=== PATIENT | male | born 1940 | race Caucasian/White ===

== ENCOUNTER 2017-08-11 15:20 | Inpatient (IN) | payer MEDICARE, OTHER ==
[2017-08-11] MEDS ORDERED: ASPIRIN 81 MG TABLET, CHEWABLE PO ONE (15:26)
--- NOTE | 2017-08-11 15:55 | RADIOLOGY REPORT (SQ) ---
EXAM DESCRIPTION: CHEST SINGLE VIEW COMPLETED DATE/TIME: 08/11/2017 3:46 pm REASON FOR STUDY: cp COMPARISON: None. EXAM PARAMETERS: NUMBER OF VIEWS: One view. TECHNIQUE: Single frontal radiographic view of the chest acquired. RADIATION DOSE: NA LIMITATIONS: None. FINDINGS: LUNGS AND PLEURA: Multifocal airspace disease involving the left upper and left lower lobe . MEDIASTINUM AND HILAR STRUCTURES: No masses. Contour normal. HEART AND VASCULAR STRUCTURES: Heart is enlarge. Normal vasculature. BONES: No acute findings. HARDWARE: Dual lead cardiac pacer. OTHER: No other significant finding. IMPRESSION: MULTIFOCAL LEFT-SIDED AIRSPACE DISEASE PRESUMABLY REPRESENTS PNEUMONIA IN THE APPROPRIAT E CLINICAL SETTING. RECOMMEND FOLLOWUP RADIOGRAPHS IN 4 TO 6 WEEKS TO ENSURE RESOLUTION. TECHNICAL DOCUMENTATION: JOB ID: [id number] [employer]- All Rights Reserved
[2017-08-11 15:59] LABS: ABSOLUTE EOSINOPHILS # (AUTO) 0.1 10^3/uL (0.0-0.6); ABSOLUTE MONOCYTES (AUTO) 0.4 10^3/uL (0.1-1.4); BASOPHILS % (AUTO) 0.7 % (0-2); EOSINOPHILS % (AUTO) 1.9 % (0-6); HEMATOCRIT 27.6 % (37.9-51.0); HEMOGLOBIN 9.1 g/dL (13.5-17.0); LYMPHOCYTES % (AUTO) 14.8 % (13-45); MEAN CORPUSCULAR HEMOGLOBIN 27.7 pg (27.0-33.4); MEAN CORPUSCULAR HGB CONC 32.9 g/dL (32.0-36.0); MEAN CORPUSCULAR VOLUME 84 fl (80-97); MONOCYTES % (AUTO) 5.7 % (3-13); PLATELET COUNT 111 10^3/uL (150-450); RED BLOOD COUNT 3.28 10^6/uL (4.35-5.55); RED CELL DISTRIBUTION WIDTH 16.1 % (11.5-14.0); SEGMENTED NEUTROPHILS % (AUTO) 76.9 % (42-78); TOTAL CELLS COUNTED % (AUTO) 100 %; WHITE BLOOD COUNT 6.5 10^3/uL (4.0-10.5)
[2017-08-11] MEDS ORDERED: NITROGLYCERIN 2% OINTMENT 1 GM PACKET TP ONE (15:59)
[2017-08-11 16:16] LABS: ALANINE AMINOTRANSFERASE 20 U/L (21-72); ALBUMIN 3.7 g/dL (3.5-5.0); ALKALINE PHOSPHATASE 100 U/L (38-126); ANION GAP 11 (5-19); ASPARTATE AMINO TRANSFERASE 14 U/L (17-59); BILIRUBIN,DIRECT 0.2 mg/dL (0.0-0.4); BILIRUBIN,TOTAL 0.6 mg/dL (0.2-1.3); BLOOD UREA NITROGEN 45 mg/dL (7-20); CALCIUM 9.9 mg/dL (8.4-10.2); CARBON DIOXIDE 30 mmol/L (22-30); CHLORIDE 102 mmol/L (98-107); CREATINE KINASE 44 U/L (55-170); GLUCOSE 105 mg/dL (75-110); POTASSIUM 4.7 mmol/L (3.6-5.0); TOTAL PROTEIN 7.3 g/dL (6.3-8.2)
[2017-08-11 16:26] LABS: CREATINE KINASE MB 1.27 ng/mL (<4.55)
[2017-08-11 16:28] LABS: TROPONIN I < 0.012 ng/mL
[2017-08-11] MEDS ORDERED: LEVOFLOXACIN 500 MG/D5W RTU 500 MG/100 ML RTUPB IV ONE (16:59)
[2017-08-11] MEDS ORDERED: CEFEPIME 1 GM/D5W RTU 1 GM/50 ML RTUPB IV ONE (16:59)
--- NOTE | 2017-08-11 17:02 | ER Document Report ---
ED General - General Stated Complaint: CHEST PAIN Time Seen by Provider: 08/11/17 15:50 - HPI Patient complains to provider of: Chest pain shortness of breath Notes: Patient states recently traveled to the area from [place]. Patient states 2 weeks ago was treated for pneumonia took an antibiotic twice a day completed patient states feeling better traveled in an RV to the area. Patient states extensive cardiac history of 5 stents placed cards indicate LAD RCA lesions. Patient also has a pacemaker. Patient denies a history of blood clots. Denies any fevers chills or night sweats states shortness of breath with exertion. States this is worse than his baseline. Patient does have a history of COPD and is on chronic oxygen 4 L at home. Patient points to the right side of his chest upon my evaluations to the area of his pain. Patient denies any trauma. Patient states pain was relieved with nitro glycerin. Patient otherwise resting comfortably upon my evaluation. - Related Data Allergies/Adverse Reactions: No Known Allergies Allergy (Verified 08/11/17 18:20) Past Medical History - Social History Smoking Status: Unknown if Ever Smoked Family History: Reviewed & Not Pertinent Review of Systems - Review of Systems Constitutional: No symptoms reported EENT: No symptoms reported Cardiovascular: Chest pain Respiratory: Short of breath, Wheezing Gastrointestinal: No symptoms reported Genitourinary: No symptoms reported Male Genitourinary: No symptoms reported Musculoskeletal: No symptoms reported Skin: No symptoms reported Hematologic/Lymphatic: No symptoms reported Neurological/Psychological: No symptoms reported -: Yes All other systems reviewed and negative Physical Exam - Vital signs Vitals: Pulse Ox 85 L 08/11/17 15:21 Interpretation: Normal - General General appearance: Appears well, Alert - HEENT Head: Normocephalic, Atraumatic Eyes: Normal Pupils: PERRL - Respiratory Respiratory status: No respiratory distress Chest status: Nontender Breath sounds: Rhonchi, Wheezing Chest palpation: Normal - Cardiovascular Rhythm: Regular Heart sounds: Normal auscultation Murmur: No - Abdominal Inspection: Normal Distension: No distension Bowel sounds: Normal Tenderness: Nontender Organomegaly: No organomegaly - Back Back: Normal, Nontender - Extremities General upper extremity: Normal inspection, Nontender, Normal color, Normal ROM , Normal temperature General lower extremity: Normal inspection, Nontender, Normal color, Normal ROM , Normal temperature, Normal weight bearing. No: Kaden's sign - Neurological Neuro grossly intact: Yes Cognition: Normal Orientation: AAOx4 Ramez Coma Scale Eye Opening: Spontaneous Ramez Coma Scale Verbal: Oriented [place] Coma Scale Motor: Obeys Commands Ramez Coma Scale Total: 15 Speech: Normal Motor strength normal: LUE, RUE, LLE, RLE Sensory: Normal - Psychological Associated symptoms: Normal affect, Normal mood - Skin Skin Temperature: Warm Skin Moisture: Dry Skin Color: Normal Course - Re-evaluation Re-evalutation: 08/11/17 19:44 Chest x-ray shows a left-sided pneumonia. Patient states he was treated for right-sided pneumonia. Initially was going to perform a CTA as the patient became very hypoxic upon standing going down as low as 75%. However with the diagnosis pneumonia I think we have the etiology for the patient's pain and shortness of breath. Started on cefepime and Levaquin. Patient will be admitted to the hospitalist service. - Vital Signs Vital signs: Temp Pulse Resp BP Pulse Ox 85 L 08/11/17 15:21 - Laboratory Result Diagrams: 08/11/17 15:30 08/11/17 15:30 Laboratory results interpreted by me: 08/11/17 08/11/17 15:30 15:30 RBC 3.28 L Hgb 9.1 L Hct 27.6 L RDW 16.1 H Plt Count 111 L BUN 45 H Creatinine 2.29 H Est GFR ( Amer) 34 L Est GFR (Non-Af Amer) 28 L AST 14 L ALT 20 L Creatine Kinase 44 L Discharge - Discharge Clinical Impression: Left-sided pneumonia, Right-sided chest pain, Hypoxemia, Oxygen dependent COPD (chronic obstructive pulmonary disease) Qualifiers: COPD type: unspecified COPD Qualified Code(s): J44.9 - Chronic obstructive pulmonary disease, unspecified Condition: Good Disposition: ADMITTED OBSERVATION Admitting Provider: Hospitalist - [facility] Admitted: Telemetry
[2017-08-11] MEDS ORDERED: NORMAL SALINE 1000 ML 1,000 ML IV PRN (17:32)
[2017-08-11] MEDS ORDERED: MORPHINE SULFATE 10 MG/ML INJ IV PRN (17:41)
[2017-08-11] MEDS ORDERED: BUDESONIDE NEB 0.5 MG/2 ML AMPUL NEB ONE (18:30)
[2017-08-11] MEDS ORDERED: ONDANSETRON HCL INJ/PF 4 MG/2 ML SDV IV PRN (18:32)
--- NOTE | 2017-08-11 18:33 | PDOC H&P ---
History of Present Illness Admission Date/PCP: 08/11/17 Dr. Sandhu Patient complains of: Chest pain History of Present Illness: GILBERTO LEUNG is a 76 year old male with a history of COPD, chronic hypoxic respiratory failure, coronary artery disease status post 5 stents, hypertension and pacemaker placement presenting with a complaint of chest pain which woke him up this morning. Patient states that it is in the middle of his chest and wont go away. Patient states moving makes it worse and staying still makes it better. Patient states that he has some lightheadedness while getting up. Patient also reports being short of breath however patient is on 4 liters of oxygen. Patient states that this chest pain is different from the chest pain he had during his heart attack. Patient would like something for the the pain. Patient states that he had pneumonia 2 weeks ago and was treated for it. He did have his flu and pneumovax. Patient denies any cough, fever but does state he has some chills. In the ED patient was started on cefepime and levaquin for a left-sided pneumonia. He was also noted to be hypoxic into the 70s with minimal activity. Patient was given aspirin and Nitropaste for his chest pain however his troponin is negative. Hospitalist was called to admit patient for left-sided pneumonia and acute on chronic hypoxic respiratory failure. Past Medical History Cardiac Medical History: Reports: Coronary Artery Disease, Myocardial Infarction , Hypertension Pulmonary Medical History: Reports: Chronic Obstructive Pulmonary Disease (COPD) , Respiratory Failure Psychiatric Medical History: Reports: Alcohol Dependency Past Surgical History Past Surgical History: Reports: Coronary Stent, Pacemaker Social History Lives with: Spouse/Significant other Smoking Status: Former Smoker Last Alcohol Use: 08/10/17 - Wine daily Hx Recreational Drug Use: No Family History Family History: CAD - Heart attack in mother, Malignancy - Liver cancer in father Parental Family History Reviewed: No Children Family History Reviewed: No Sibling(s) Family History Reviewed.: No Medication/Allergy Home Medications: Albuterol Sulfate [Proair HFA] 08/12/17 Amlodipine Besylate [Norvasc 10 mg Tablet] DAILY 08/12/17 Atorvastatin Calcium [Lipitor 80 mg Tablet] DAILY 08/12/17 Clopidogrel Bisulfate [Clopidogrel] DAILY 08/12/17 Furosemide [Furosemide] 08/12/17 Metoprolol Tartrate [Lopressor 50 mg Tablet] 25 mg BID 08/12/17 Nitroglycerin [Nitroglycerin] PRN 08/12/17 Ranitidine HCl [Heartburn Relief] DAILY 08/12/17 Allergies/Adverse Reactions: No Known Allergies Allergy (Verified 08/11/17 18:20) Review of Systems Constitutional: PRESENT: chills. ABSENT: fever(s), headache(s), weight gain, weight loss Eyes: ABSENT: visual disturbances Ears: ABSENT: hearing changes Cardiovascular: PRESENT: chest pain, dyspnea on exertion. ABSENT: edema, orthropnea, palpitations Respiratory: ABSENT: cough, hemoptysis Gastrointestinal: ABSENT: abdominal pain, constipation, diarrhea, hematemesis, hematochezia, nausea, vomiting Genitourinary: ABSENT: dysuria, hematuria Musculoskeletal: ABSENT: joint swelling Integumentary: ABSENT: rash, wounds Neurological: PRESENT: dizziness. ABSENT: abnormal gait, abnormal speech, confusion, focal weakness, syncope Psychiatric: ABSENT: anxiety, depression, homidical ideation, suicidal ideation Endocrine: ABSENT: cold intolerance, heat intolerance, polydipsia, polyuria Hematologic/Lymphatic: ABSENT: easy bleeding, easy bruising Physical Exam Vital Signs: Selected Entries 08/11/17 21:04 Temperature 98.4 F Pulse Rate [ 98 Bilateral Radial] Respiratory 22 H Rate Blood Pressure 109/56 L [Right Upper Arm] Blood Pressure 73 Mean [Right Upper Arm] O2 Sat by Pulse 92 Oximetry Oxygen Flow 4 Rate Height 5 ft 11 in Weight 81.647 kg General appearance: PRESENT: mild distress, well-developed Head exam: PRESENT: normocephalic Eye exam: PRESENT: EOMI. ABSENT: scleral icterus Ear exam: PRESENT: normal external ear exam Mouth exam: PRESENT: moist Neck exam: ABSENT: carotid bruit, JVD, lymphadenopathy, thyromegaly Respiratory exam: PRESENT: decreased breath sounds. ABSENT: rales, rhonchi, wheezes Cardiovascular exam: PRESENT: RRR. ABSENT: diastolic murmur, rubs, systolic murmur Pulses: PRESENT: normal dorsalis pedis pul Vascular exam: PRESENT: normal capillary refill GI/Abdominal exam: PRESENT: normal bowel sounds, soft. ABSENT: distended, guarding, mass, organolmegaly, rebound, tenderness Rectal exam: PRESENT: deferred Extremities exam: PRESENT: full ROM. ABSENT: calf tenderness, clubbing, pedal edema Neurological exam: PRESENT: alert, awake, oriented to person, oriented to place , oriented to time, oriented to situation, CN II-XII grossly intact. ABSENT: motor sensory deficit Psychiatric exam: PRESENT: appropriate affect, normal mood. ABSENT: homicidal ideation, suicidal ideation Skin exam: PRESENT: dry, intact, warm. ABSENT: cyanosis, rash Results Laboratory Results: 08/11/17 15:30 08/11/17 15:30 08/11/17 08/11/17 08/11/17 15:30 15:30 15:30 WBC 6.5 RBC 3.28 L Hgb 9.1 L Hct 27.6 L MCV 84 MCH 27.7 MCHC 32.9 RDW 16.1 H Plt Count 111 L Seg Neutrophils % 76.9 Lymphocytes % 14.8 Monocytes % 5.7 Eosinophils % 1.9 Basophils % 0.7 Absolute Neutrophils 5.0 Absolute Lymphocytes 1.0 Absolute Monocytes 0.4 Absolute Eosinophils 0.1 Absolute Basophils 0.0 Sodium 143.0 Potassium 4.7 Chloride 102 Carbon Dioxide 30 Anion Gap 11 BUN 45 H Creatinine 2.29 H Est GFR ( Amer) 34 L Est GFR (Non-Af Amer) 28 L Glucose 105 Calcium 9.9 Total Bilirubin 0.6 AST 14 L ALT 20 L Alkaline Phosphatase 100 Total Protein 7.3 Albumin 3.7 Lipase 69.8 08/11/17 08/11/17 15:30 15:30 Creatine Kinase 44 L CK-MB (CK-2) 1.27 Troponin I < 0.012 Impressions: Chest X-Ray 08/11/17 15:26 IMPRESSION: MULTIFOCAL LEFT-SIDED AIRSPACE DISEASE PRESUMABLY REPRESENTS PNEUMONIA IN THE APPROPRIATE CLINICAL SETTING. RECOMMEND FOLLOWUP RADIOGRAPHS IN 4 TO 6 WEEKS TO ENSURE RESOLUTION. Assessment & Plan - Diagnosis (1) Chest pain Qualifiers: Chest pain type: unspecified Qualified Code(s): R07.9 - Chest pain, unspecified Is this a current diagnosis for this admission?: Yes Plan: Patient with midsternal chest pain without radiation nonreproducible. Seems atypical in nature. However due to his significant cardiac history 3 MIs with 5 stents. It is appropriate to rule out acute coronary syndrome. Initial troponin is negative. Will check serial troponins, order EKG cardiac echo. Appears that patient has chronic chest pain as he has Nitropaste status on his home medications. Will continue Nitropaste, aspirin, statin and beta-boyd. Morphine PRN for chest pain. Will check lipid panel in the morning along with hemoglobin A1c. (2) Pneumonia Qualifiers: Laterality: left Is this a current diagnosis for this admission?: Yes Plan: Sided pneumonia on chest x-ray. Patient with cefepime and Levaquin. Concerned about using left quite again as patient has had multiple prescriptions for Levaquin. Blood culture ordered. Order incentive spirometry and encourage up to chair. (3) COPD (chronic obstructive pulmonary disease) Qualifiers: COPD type: unspecified COPD Qualified Code(s): J44.9 - Chronic obstructive pulmonary disease, unspecified Is this a current diagnosis for this admission?: Yes Plan: Patient may be having an exacerbation at this time as he is short of breath and extremely hypoxic with minimal activity. Will start patient on IV steroids, continue antibiotics along with duo nebs and inhaled steroids. (4) Acute and chronic respiratory failure with hypoxia Is this a current diagnosis for this admission?: Yes Plan: Acute on chronic hypoxic respiratory failure. Patient does wear 4 L of oxygen at home which began in January. Patient noted to be desatting on 4 L and was put on 6 L while in the ED. monitor patient and wean oxygen as tolerated. (5) Hypertension Qualifiers: Hypertension type: essential hypertension Qualified Code(s): I10 - Essential (primary) hypertension Is this a current diagnosis for this admission?: Yes Plan: Will continue patient on his home medications. (6) CKD (chronic kidney disease) stage 4, GFR 15-29 ml/min Is this a current diagnosis for this admission?: Yes Plan: Possibly chronic in nature as patient also has anemia. Will gently hydrate overnight and repeat BMP in the morning. (7) Anemia Qualifiers: Anemia type: due to chronic kidney disease Chronic kidney disease stage: stage 4 (severe) Qualified Code(s): N18.4 - Chronic kidney disease, stage 4 ( severe); D63.1 - Anemia in chronic kidney disease; D63.1 - Anemia in chronic kidney disease Is this a current diagnosis for this admission?: Yes Plan: Likely anemia of chronic kidney disease. Patient hemoglobin is 9.1. Will monitor and check anemia panel. (8) Thrombocytopenia Is this a current diagnosis for this admission?: Yes Plan: Not sure if this is chronic in nature as we do not have anything to compare to. Patient reports drinking daily. Not sure if this may be the cause. Will use SCDs for DVT prophylaxis and repeat CBC in a.m. (9) HLD (hyperlipidemia) Qualifiers: Hyperlipidemia type: unspecified Qualified Code(s): E78.5 - Hyperlipidemia , unspecified Is this a current diagnosis for this admission?: Yes Plan: Continue statin.
[2017-08-11] MEDS ORDERED: MORPHINE SULFATE 10 MG/ML INJ IV ONE (19:00)
[2017-08-11] MEDS: IPRATROPIUM/ALBUTEROL 0.5-2.5 MG/3 ML AMPUL NEB SCH (19:31)
[2017-08-11] MEDS: METHYLPREDNISOLONE INJ 125 MG/2 ML SDV IV SCH (20:00)
[2017-08-11] MEDS ORDERED: ATORVASTATIN CALCIUM 80 MG TABLET PO ONE (20:00)
[2017-08-11] MEDS ORDERED: SENNOSIDES/DOCUSATE 8.6-50 MG 1 EACH TABLET PO ONE (20:00)
[2017-08-11] MEDS: GUAIFENESIN 600 MG TABLET.SA PO SCH (21:37)
[2017-08-11] MEDS: CEFEPIME 2 GM/D5W RTU 2 GM/50 ML RTUPB IV SCH (21:37)
[2017-08-11] MEDS: METOPROLOL TARTRATE 50 MG TABLET PO SCH (21:40)
[2017-08-11] MEDS: OXYCODONE-ACETAMINOPHEN 5-325 MG TABLET PO PRN (21:41)
[2017-08-11] MEDS ORDERED: LINEZOLID 300 ML IV ONE (22:48)
[2017-08-12] MEDS: IPRATROPIUM/ALBUTEROL 0.5-2.5 MG/3 ML AMPUL NEB SCH ×7 (00:07→23:22)
[2017-08-12] MEDS: DIAZEPAM 2 MG TABLET PO SCH ×4 (00:10→21:47)
[2017-08-12] MEDS: LINEZOLID 300 ML IV SCH ×3 (00:10→21:47)
[2017-08-12 05:49] LABS: ABSOLUTE LYMPHOCYTES (AUTO) 0.6 10^3/uL (0.5-4.7); ABSOLUTE MONOCYTES (AUTO) 0.3 10^3/uL (0.1-1.4); ABSOLUTE NEUT (AUTO) 5.4 10^3/uL (1.7-8.2); ABSOLUTE RETICS # 0.042 10^6/uL (0.028-0.122); BASOPHILS % (AUTO) 0.1 % (0-2); EOSINOPHILS % (AUTO) 0.1 % (0-6); HEMATOCRIT 27.2 % (37.9-51.0); HEMOGLOBIN 8.7 g/dL (13.5-17.0); MEAN CORPUSCULAR HEMOGLOBIN 27.2 pg (27.0-33.4); MEAN CORPUSCULAR HGB CONC 32.1 g/dL (32.0-36.0); MEAN CORPUSCULAR VOLUME 85 fl (80-97); MONOCYTES % (AUTO) 4.2 % (3-13); RED BLOOD COUNT 3.21 10^6/uL (4.35-5.55); RED CELL DISTRIBUTION WIDTH 15.9 % (11.5-14.0); RETICULOCYTE COUNT (AUTO) 1.31 % (0.66-2.85); SEGMENTED NEUTROPHILS % (AUTO) 86.6 % (42-78); TOTAL CELLS COUNTED % (AUTO) 100 %; WHITE BLOOD COUNT 6.2 10^3/uL (4.0-10.5)
[2017-08-12 05:54] LABS: ANION GAP 14 (5-19); BLOOD UREA NITROGEN 51 mg/dL (7-20); CALCIUM 9.8 mg/dL (8.4-10.2); CARBON DIOXIDE 23 mmol/L (22-30); CHLORIDE 102 mmol/L (98-107); CHOLESTEROL 79.71 mg/dL (0-200); GLUCOSE 180 mg/dL (75-110); MAGNESIUM 2.1 mg/dL (1.6-2.3); POTASSIUM 5.2 mmol/L (3.6-5.0); SODIUM 138.6 mmol/L (137-145); TRIGLYCERIDES 51 mg/dL (<150)
[2017-08-12] MEDS: LANSOPRAZOLE 30 MG TAB.RAP.DR PO SCH (06:02)
--- NOTE | 2017-08-12 06:03 | EKG REPORT ---
SEVERITY:- ABNORMAL ECG - ATRIAL-SENSED VENTRICULAR-PACED RHYTHM : Confirmed by: Denny Ragsdale MD 12-Aug-2017 06:02:33
[2017-08-12 06:05] LABS: DIRECT LDL 33 mg/dL (<100)
[2017-08-12 06:18] LABS: FREE T3 1.34 pg/mL (2.77-5.27); FREE T4 (FREE THYROXINE) 0.95 ng/dL (0.78-2.19)
[2017-08-12 06:20] LABS: PLATELET COUNT 96 10^3/uL (150-450)
[2017-08-12 06:32] LABS: THYROID STIMULATING HORMONE 1.94 uIU/mL (0.47-4.68)
[2017-08-12 07:03] LABS: FOLATE 5.02 ng/mL (>2.76)
[2017-08-12] MEDS: METOPROLOL TARTRATE 50 MG TABLET PO SCH (09:23)
[2017-08-12] MEDS: METHYLPREDNISOLONE INJ 125 MG/2 ML SDV IV SCH (09:28)
[2017-08-12] MEDS: GUAIFENESIN 600 MG TABLET.SA PO SCH ×2 (09:28→21:16)
[2017-08-12] MEDS: CEFEPIME 2 GM/D5W RTU 2 GM/50 ML RTUPB IV SCH (09:29)
[2017-08-12] MEDS ORDERED: ASPIRIN 81 MG TABLET, ENT COATED PO SCH (10:00)
[2017-08-12] MEDS ORDERED: METOPROLOL TARTRATE 50 MG TABLET PO SCH ×2 (10:00→13:09)
[2017-08-12] MEDS ORDERED: LEVOFLOXACIN 500 MG/D5W RTU 500 MG/100 ML RTUPB IV SCH (10:00)
[2017-08-12] MEDS ORDERED: NITROGLYCERIN 10 MG (0.4 MG/HR) PATCH.TD24 TD SCH (10:00)
--- NOTE | 2017-08-12 13:21 | PDOC PROGRESS REPORT ---
Subjective Progress Note for:: 08/12/17 Subjective:: Patient presents with left side pneumonia and pleuritic chest pain. Patient states he chest pain is must better. Patient is still very short of breath with minimal activity. Reason For Visit: PNEUMONIA Physical Exam Vital Signs: Temp Pulse Resp BP Pulse Ox 97.9 F 108 H 18 97/69 L 91 L 08/12/17 11:57 08/12/17 11:57 08/12/17 11:57 08/12/17 11:57 08/12/17 11:57 Intake & Output 08/11/17 08/12/17 08/13/17 06:59 06:59 06:59 Intake Total 1265 Output Total 200 Balance 1065 Weight 85.2 kg General appearance: PRESENT: no acute distress, thin, well-developed Head exam: PRESENT: normocephalic Eye exam: PRESENT: EOMI. ABSENT: scleral icterus Mouth exam: PRESENT: moist Neck exam: ABSENT: carotid bruit, JVD, lymphadenopathy, thyromegaly Respiratory exam: PRESENT: decreased breath sounds - especially on the left side. ABSENT: rales, rhonchi, wheezes Cardiovascular exam: PRESENT: RRR. ABSENT: diastolic murmur, rubs, systolic murmur GI/Abdominal exam: PRESENT: normal bowel sounds, soft. ABSENT: distended, guarding, mass, organolmegaly, rebound, tenderness Rectal exam: PRESENT: deferred Extremities exam: PRESENT: full ROM. ABSENT: calf tenderness, clubbing, pedal edema Neurological exam: PRESENT: alert, awake, oriented to person, oriented to place , oriented to time, oriented to situation, CN II-XII grossly intact. ABSENT: motor sensory deficit Psychiatric exam: PRESENT: appropriate affect, normal mood. ABSENT: homicidal ideation, suicidal ideation Skin exam: PRESENT: dry, intact, warm. ABSENT: cyanosis, rash Results Laboratory Results: 08/12/17 04:54 08/12/17 04:54 08/12/17 08/12/17 08/12/17 04:54 04:54 04:54 WBC 6.2 RBC 3.21 L Hgb 8.7 L Hct 27.2 L MCV 85 MCH 27.2 MCHC 32.1 RDW 15.9 H Plt Count 96 L Seg Neutrophils % 86.6 H Lymphocytes % 9.0 L Monocytes % 4.2 Eosinophils % 0.1 Basophils % 0.1 Absolute Neutrophils 5.4 Absolute Lymphocytes 0.6 Absolute Monocytes 0.3 Absolute Eosinophils 0.0 Absolute Basophils 0.0 Retic Count (auto) 1.31 Absolute Retic 0.042 Sodium 138.6 Potassium 5.2 H Chloride 102 Carbon Dioxide 23 Anion Gap 14 BUN 51 H Creatinine 2.34 H Est GFR ( Amer) 33 L Est GFR (Non-Af Amer) 27 L Glucose 180 H Calcium 9.8 Magnesium 2.1 Iron 17.0 L TIBC 331 % Saturation 5 Ferritin 54.50 Triglycerides 51 Cholesterol 79.71 LDL Cholesterol Direct 33 VLDL Cholesterol 10.0 HDL Cholesterol 33 L Vitamin B12 406.0 Folate 5.02 TSH 1.94 Free T4 0.95 Free T3 pg/mL 1.34 L 08/11/17 08/12/17 18:31 00:39 Troponin I 0.013 0.026 Impressions: Chest X-Ray 08/11/17 15:26 IMPRESSION: MULTIFOCAL LEFT-SIDED AIRSPACE DISEASE PRESUMABLY REPRESENTS PNEUMONIA IN THE APPROPRIATE CLINICAL SETTING. RECOMMEND FOLLOWUP RADIOGRAPHS IN 4 TO 6 WEEKS TO ENSURE RESOLUTION. Assessment & Plan - Diagnosis (1) Chest pain Qualifiers: Chest pain type: unspecified Qualified Code(s): R07.9 - Chest pain, unspecified Is this a current diagnosis for this admission?: Yes Plan: Patient troponins remained negative. Patient has pleuritic chest pain secondary to his pneumonia which is improving with steroids. Will continue with the treatment for his pneoumonia and COPD. Will still check cardiac echo. Will continue statin and beta boyd considering patient extensive cardiac history. Holding plavix and aspirin due to decreasing platelet count. (2) Pneumonia Qualifiers: Laterality: left Is this a current diagnosis for this admission?: Yes Plan: Sided pneumonia on chest x-ray. Patient on cefepime and zyvox. Patient states he fells better. Reluctant to use levaquin as it appears as if patient has been treated with this antibiotic several times concerned that he may not be responding to the treatment. Patient is schedule to have a repeat CT chest with his remotely operated vehicle on August 22. (3) COPD (chronic obstructive pulmonary disease) Qualifiers: COPD type: unspecified COPD Qualified Code(s): J44.9 - Chronic obstructive pulmonary disease, unspecified Is this a current diagnosis for this admission?: Yes Plan: Patient may be having an exacerbation at this time as he is short of breath and extremely hypoxic with minimal activity. Continue steroids, continue antibiotics along with duo nebs and inhaled steroids. (4) Acute and chronic respiratory failure with hypoxia Is this a current diagnosis for this admission?: Yes Plan: Acute on chronic hypoxic respiratory failure. Patient currently on 4L of oxygen. Patient maintaining saturations in the low to mid 90s. (5) Hypertension Qualifiers: Hypertension type: essential hypertension Qualified Code(s): I10 - Essential (primary) hypertension Is this a current diagnosis for this admission?: Yes Plan: Patient blood pressures on the low side. Currently holding some of the medications due to parameters in place. Will resume bp medications once blood pressures are higher. (6) CKD (chronic kidney disease) stage 4, GFR 15-29 ml/min Is this a current diagnosis for this admission?: Yes Plan: Possibly chronic in nature as patient also has anemia. Patient creatinine actually trended up. Will continue to monitor and hold lisinopril. (7) Anemia Qualifiers: Anemia type: due to chronic kidney disease Chronic kidney disease stage: stage 4 (severe) Qualified Code(s): N18.4 - Chronic kidney disease, stage 4 ( severe); D63.1 - Anemia in chronic kidney disease; D63.1 - Anemia in chronic kidney disease Is this a current diagnosis for this admission?: Yes Plan: This is anemia of chronic renal disease. Patient is on iron as one of his home medications. (8) Thrombocytopenia Is this a current diagnosis for this admission?: Yes Plan: Patient platelets are actually lower today. Will hold aspirin and plavix. SCD with DVT prophylaxis. (9) HLD (hyperlipidemia) Qualifiers: Hyperlipidemia type: unspecified Qualified Code(s): E78.5 - Hyperlipidemia , unspecified Is this a current diagnosis for this admission?: Yes Plan: Continue statin. - Time Time Spent with patient: Less than 15 minutes Anticipated discharge: Home Within: within 72 hours - Inpatient Certification Medical Necessity: Significant Comorbidiites Make Outpatient Treatment Too Risky , Need Close Monitoring Due to Risk of Patient Decompensation, Need for IV Antibiotics, Risk of Complication if Not Cared For in Hospital
[2017-08-12] MEDS: METHYLPREDNISOLONE INJ 40 MG/1 ML SDV IV SCH ×2 (14:28→21:14)
[2017-08-12] MEDS: OXYCODONE-ACETAMINOPHEN 5-325 MG TABLET PO PRN (17:43)
[2017-08-12] MEDS: NITROGLYCERIN 0.4 MG/TAB 25 TAB/BOTTLE SL PRN ×2 (20:41→20:54)
[2017-08-12] MEDS: CEFEPIME HCL 2 GM in DEXTROSE 5%-WATER 50 ML IV SCH (21:15)
[2017-08-12] MEDS: ATORVASTATIN CALCIUM 40 MG TABLET PO SCH (21:16)
[2017-08-12] MEDS: SENNOSIDES/DOCUSATE 8.6-50 MG 1 EACH TABLET PO SCH (21:16)
[2017-08-12 21:43] LABS: CREATINE KINASE MB 2.04 ng/mL (<4.55); TROPONIN I 0.047 ng/mL
[2017-08-12] MEDS ORDERED: ATORVASTATIN CALCIUM 80 MG TABLET PO SCH (22:00)
--- NOTE | 2017-08-12 22:13 | EKG REPORT ---
SEVERITY:- ABNORMAL ECG - VENTRICULAR-PACED COMPLEXES PROBABLE LEFT ATRIAL ABNORMALITY IVCD, CONSIDER ATYPICAL LBBB : Confirmed by: Edgar Tapia 12-Aug-2017 22:12:10
[2017-08-12] MEDS ORDERED: LACTULOSE SYRUP 20 GM/30 ML UDCUP PO ONE (22:33)
--- NOTE | 2017-08-12 23:52 | RADIOLOGY REPORT (SQ) ---
EXAM DESCRIPTION: ACUTE ABDOMEN SERIES COMPLETED DATE/TIME: 08/12/2017 11:43 pm REASON FOR STUDY: chest pain; CONSTIPATION COMPARISON: Chest radiograph 08/11/2017 NUMBER OF VIEWS: Three views. TECHNIQUE: Frontal chest, supine abdomen and upright/decubitus abdomen radiographic images acquired. LIMITATIONS: None. FINDINGS: CHEST: Deterioration with bilateral airspace disease. No pneumothorax. FREE AIR: None. No abnormal gas collections. BOWEL GAS PATTERN: Nonobstructive pattern. No dilated loops or air fluid levels. CALCIFICATIONS: No suspicious calcifications. HARDWARE: None in the abdomen. SOFT TISSUES: No gross mass or suggestion of organomegaly. BONES: No acute fracture. No worrisome bone lesions. OTHER: No other significant finding. IMPRESSION: No acute abdominal disease. Worsening chest radiograph with extensive bilateral airspace disease. TECHNICAL DOCUMENTATION: JOB ID: [id number] [employer]- All Rights Reserved
[2017-08-13] MEDS ORDERED: SODIUM POLYSTYRENE SULFONATE 15 GM/60 ML PO ONE (01:05)
[2017-08-13] MEDS: IPRATROPIUM/ALBUTEROL 0.5-2.5 MG/3 ML AMPUL NEB SCH ×2 (03:17→08:29)
[2017-08-13 05:46] LABS: CHOLESTEROL 91.32 mg/dL (0-200); TRIGLYCERIDES 56 mg/dL (<150)
[2017-08-13 05:57] LABS: DIRECT LDL 35 mg/dL (<100)
[2017-08-13] MEDS: LANSOPRAZOLE 30 MG TAB.RAP.DR PO SCH (06:23)
[2017-08-13] MEDS: DIAZEPAM 2 MG TABLET PO SCH ×2 (06:23→17:11)
[2017-08-13] MEDS: METHYLPREDNISOLONE INJ 40 MG/1 ML SDV IV SCH ×3 (06:23→21:10)
[2017-08-13 09:36] LABS: ARTERIAL BLOOD BASE EXCESS 0 mmol/L; ARTERIAL BLOOD FIO2 40%; ARTERIAL BLOOD H2CO3 1.19 mmol/L (1.05-1.35); ARTERIAL BLOOD HCO3 24.5 mmol/L (20-26); ARTERIAL BLOOD O2 SATURATION 88.1 % (94-98); ARTERIAL BLOOD PCO2 39.4 mmHg (35-45); ARTERIAL BLOOD PH 7.41 (7.35-7.45); ARTERIAL BLOOD PO2 53.3 mmHg (80-100); ARTERIAL BLOOD TOTAL CO2 25.7 mmol/L (23-27)
[2017-08-13] MEDS ORDERED: ASPIRIN 81 MG TABLET, ENT COATED PO SCH (10:00)
[2017-08-13] MEDS ORDERED: CLOPIDOGREL BISULFATE 75 MG TABLET PO SCH (10:00)
[2017-08-13] MEDS: NITROGLYCERIN 0.4 MG/TAB 25 TAB/BOTTLE SL PRN (10:26)
[2017-08-13] MEDS ORDERED: LEVALBUTEROL HCL NEB 1.25 MG/3 ML AMPUL NEB PRN (10:27)
[2017-08-13] MEDS ORDERED: METOPROLOL TARTRATE PF/INJ 5 MG/5 ML SDV IV PRN (10:35)
[2017-08-13] MEDS ORDERED: FUROSEMIDE INJ/PF 40 MG/4 ML SDV IV ONE (11:00)
[2017-08-13] MEDS ORDERED: METOPROLOL TARTRATE PF/INJ 5 MG/5 ML SDV IV ONE (11:00)
[2017-08-13] MEDS: CYANOCOBALAMIN (VITAMIN B-12) 1,000 MCG TABLET PO SCH (11:08)
[2017-08-13] MEDS: FERROUS SULFATE 325 MG TABLET PO SCH (11:09)
[2017-08-13] MEDS: TAMSULOSIN HCL 0.4 MG CAP.SR.24H PO SCH (11:09)
[2017-08-13] MEDS: FINASTERIDE 5 MG TABLET PO SCH (11:09)
[2017-08-13] MEDS: GUAIFENESIN 600 MG TABLET.SA PO SCH ×2 (11:09→21:10)
[2017-08-13] MEDS: CEFEPIME HCL 2 GM in DEXTROSE 5%-WATER 50 ML IV SCH ×2 (11:13→21:09)
[2017-08-13] MEDS: RANOLAZINE 500 MG TAB.SR.12H PO SCH ×2 (11:14→21:10)
[2017-08-13] MEDS ORDERED: METOPROLOL TARTRATE 50 MG TABLET PO ONE (11:30)
[2017-08-13] MEDS: LINEZOLID 300 ML IV SCH ×2 (11:52→21:09)
--- NOTE | 2017-08-13 13:34 | PDOC PROGRESS REPORT ---
Subjective Progress Note for:: 08/13/17 Subjective:: Patient presents with left side pneumonia and pleuritic chest pain. Patient being having chest pain following breathing treatment which makes him tachycardic. Patient was also hypoxic and was placed on a mask and now on the pendent. Patient also has tremors. Reason For Visit: PNEUMONIA Physical Exam Vital Signs: Temp Pulse Resp BP Pulse Ox 98.1 F 83 20 145/90 H 90 L 08/13/17 10:26 08/13/17 12:54 08/13/17 10:26 08/13/17 10:26 08/13/17 10:26 Intake & Output 08/12/17 08/13/17 08/14/17 06:59 06:59 06:59 Intake Total 1265 1450 Output Total 200 1200 Balance 1065 250 Weight 85.2 kg 90.1 kg General appearance: PRESENT: mild distress, well-developed, well-nourished Head exam: PRESENT: normocephalic Eye exam: PRESENT: EOMI. ABSENT: scleral icterus Ear exam: PRESENT: normal external ear exam Mouth exam: PRESENT: moist Neck exam: ABSENT: carotid bruit, JVD, lymphadenopathy, thyromegaly Respiratory exam: PRESENT: crackles - bilateral lung bases, unlabored. ABSENT: rales, rhonchi, wheezes Cardiovascular exam: PRESENT: RRR, tachycardia. ABSENT: diastolic murmur, rubs , systolic murmur Pulses: PRESENT: normal dorsalis pedis pul Vascular exam: PRESENT: normal capillary refill GI/Abdominal exam: PRESENT: normal bowel sounds, soft. ABSENT: distended, guarding, mass, organolmegaly, rebound, tenderness Rectal exam: PRESENT: deferred Extremities exam: PRESENT: full ROM. ABSENT: calf tenderness, clubbing, pedal edema Neurological exam: PRESENT: alert, awake, oriented to person, oriented to place , oriented to time, oriented to situation, CN II-XII grossly intact. ABSENT: motor sensory deficit Psychiatric exam: PRESENT: appropriate affect, normal mood. ABSENT: homicidal ideation, suicidal ideation Skin exam: PRESENT: dry, intact, warm, other - blotty skin on the arms.. ABSENT : cyanosis, rash Results Laboratory Results: 08/12/17 04:54 08/12/17 04:54 08/13/17 08/13/17 04:40 09:25 Carbonic Acid 1.19 HCO3/H2CO3 Ratio 20:1 ABG pH 7.41 ABG pCO2 39.4 ABG pO2 53.3 L ABG HCO3 24.5 ABG O2 Saturation 88.1 L ABG Base Excess 0 FiO2 40% Triglycerides 56 Cholesterol 91.32 LDL Cholesterol Direct 35 VLDL Cholesterol 11.0 HDL Cholesterol 33 L 08/11/17 08/12/17 08/12/17 18:31 00:39 21:05 Creatine Kinase 32 L CK-MB (CK-2) Troponin I 0.013 0.026 08/12/17 21:05 Creatine Kinase CK-MB (CK-2) 2.04 Troponin I 0.047 Impressions: Chest X-Ray 08/11/17 15:26 IMPRESSION: MULTIFOCAL LEFT-SIDED AIRSPACE DISEASE PRESUMABLY REPRESENTS PNEUMONIA IN THE APPROPRIATE CLINICAL SETTING. RECOMMEND FOLLOWUP RADIOGRAPHS IN 4 TO 6 WEEKS TO ENSURE RESOLUTION. Acute Abdomen Series 08/12/17 00:00 IMPRESSION: No acute abdominal disease. Worsening chest radiograph with extensive bilateral airspace disease. Assessment & Plan - Diagnosis (1) Chest pain Qualifiers: Chest pain type: unspecified Qualified Code(s): R07.9 - Chest pain, unspecified Is this a current diagnosis for this admission?: Yes Plan: Patient troponins remained negative. Patient has pleuritic chest pain secondary to his pneumonia which is improving with steroids. Will continue with the treatment for his pneoumonia and COPD. Checking echo today. Continue statin and beta boyd considering patient extensive cardiac history. Resume plavix and aspirin. Will start patient on Ranexa 500mg po bid. (2) Pneumonia Qualifiers: Laterality: left Is this a current diagnosis for this admission?: Yes Plan: Bilateral pneumonia on repeat CXR. Not sure if some of this isn't fluid. Patient on cefepime and zyvox. Patient states he fells better. Reluctant to use levaquin as it appears as if patient has been treated with this antibiotic several times concerned that he may not be responding to the treatment. Patient is schedule to have a repeat CT chest with his roof panel hanger on August 22. (3) COPD (chronic obstructive pulmonary disease) Qualifiers: COPD type: unspecified COPD Qualified Code(s): J44.9 - Chronic obstructive pulmonary disease, unspecified Is this a current diagnosis for this admission?: Yes Plan: Patient may be having an exacerbation at this time as he is short of breath and extremely hypoxic with minimal activity. Continue steroids, continue antibiotics. Will change nebs to PRN as patient is becoming tachycardic with the nebs. (4) Acute and chronic respiratory failure with hypoxia Is this a current diagnosis for this admission?: Yes Plan: Acute on chronic hypoxic respiratory failure. Patient was briefly on a venti mask. Patient now on oxygen with a pendent. ABG also shows hypoxemia which is possible worse due to his pneumonia. Will continue to monitor. (5) Hypertension Qualifiers: Hypertension type: essential hypertension Qualified Code(s): I10 - Essential (primary) hypertension Is this a current diagnosis for this admission?: Yes Plan: Patient blood pressures on the low side. Currently holding some of the medications due to parameters in place. Patient blood pressure trending up. Will increase metoprolol to 25mg po bid and restart his home does of lasix. (6) CKD (chronic kidney disease) stage 4, GFR 15-29 ml/min Is this a current diagnosis for this admission?: Yes Plan: Possibly chronic in nature as patient also has anemia. Patient creatinine actually trended up. Will continue to monitor and hold lisinopril. (7) Anemia Qualifiers: Anemia type: due to chronic kidney disease Chronic kidney disease stage: stage 4 (severe) Qualified Code(s): N18.4 - Chronic kidney disease, stage 4 ( severe); D63.1 - Anemia in chronic kidney disease; D63.1 - Anemia in chronic kidney disease Is this a current diagnosis for this admission?: Yes Plan: This is anemia of chronic renal disease. Patient is on iron as one of his home medications. (8) Thrombocytopenia Is this a current diagnosis for this admission?: Yes Plan: Patient platelets are actually lower today. No clear signs of bleeding. Will restart plavix and aspirin as patient has extensive cardiac history and has been complaining of chest pain. SCD for DVT prophylaxis. (9) HLD (hyperlipidemia) Qualifiers: Hyperlipidemia type: unspecified Qualified Code(s): E78.5 - Hyperlipidemia , unspecified Is this a current diagnosis for this admission?: Yes Plan: Continue statin. (10) Hyperkalemia Is this a current diagnosis for this admission?: Yes Plan: Mild at 5.2 Patient given a dose a kayexelate by the building associate. Will follow up. (11) Tachycardia Is this a current diagnosis for this admission?: Yes Plan: Appears to be sinus tachycardia due to nebulizer. Will discontinue breathing treatment and give a dose of metoprolol IV push and increase his po metoprolol back to 25mg po bid. - Time Time Spent with patient: 15-24 minutes Anticipated discharge: Home Within: within 48 hours - Inpatient Certification Medical Necessity: Significant Comorbidiites Make Outpatient Treatment Too Risky , Need Close Monitoring Due to Risk of Patient Decompensation, Need for IV Antibiotics
[2017-08-13 14:33] LABS: HEMATOCRIT 25.5 % (37.9-51.0); HEMOGLOBIN 8.5 g/dL (13.5-17.0); MEAN CORPUSCULAR HGB CONC 33.3 g/dL (32.0-36.0); MEAN CORPUSCULAR VOLUME 84 fl (80-97); PLATELET COUNT 106 10^3/uL (150-450); RED BLOOD COUNT 3.04 10^6/uL (4.35-5.55); RED CELL DISTRIBUTION WIDTH 16.4 % (11.5-14.0); WHITE BLOOD COUNT 8.8 10^3/uL (4.0-10.5)
[2017-08-13 14:58] LABS: ABSOLUTE LYMPHOCYTES# (MANUAL) 0.4 10^3/uL (0.5-4.7); ABSOLUTE MONOCYTES # (MANUAL) 0.1 10^3/uL (0.1-1.4); ABSOLUTE NEUTROPHILS# (MANUAL) 8.4 10^3/uL (1.7-8.2); ANISOCYTOSIS 1+; BASOPHILS % (MANUAL) 0 % (0-2); EOSINOPHILS % (MANUAL) 0 % (0-6); LYMPHOCYTES % (MANUAL) 4 % (13-45); MONOCYTES % (MANUAL) 1 % (3-13); OVALOCYTES SLIGHT; PLATELET COMMENT DECREASED; POIKILOCYTOSIS SLIGHT; POLYCHROMASIA SLIGHT; ROULEAUX 1+; SEGMENTED NEUTROPHILS % (MAN) 95 % (42-78); TOTAL CELLS COUNTED 100; TOXIC GRANULATION 1+; TOXIC VACUOLATION PRESENT
[2017-08-13 15:21] LABS: ANION GAP 11 (5-19); BLOOD UREA NITROGEN 65 mg/dL (7-20); CALCIUM 9.5 mg/dL (8.4-10.2); CARBON DIOXIDE 24 mmol/L (22-30); CHLORIDE 101 mmol/L (98-107); GLUCOSE 248 mg/dL (75-110); POTASSIUM 4.4 mmol/L (3.6-5.0); SODIUM 135.7 mmol/L (137-145)
--- NOTE | 2017-08-13 17:49 | XCELERA REPORT ---
[address] [address] Transthoracic Echocardiogram Report Name: GILBERTO LEUNG Age: 76 yrs Gender: Male : 1940 Patient Status: Inpatient Patient Location: [address] [place] [address] Study Date: 08/13/2017 02:57 PM Height: 71 in Weight: 198 lb BSA: 2.1 m2 Procedure: A complete two-dimensional transthoracic echocardiogram was performed (2D, M-mode, spectral and color flow Doppler). The study was technically adequate with some images being suboptimal in quality. Reason For Study: chest pain Ordering Physician: TISHA LA Performed By: Elizabeth Smith Interpretation Summary The left ventricular ejection fraction is normal. Moderate , Moderate Pulm HTN Doppler measurements suggest pseudonormalized left ventricular relaxation, which is associated with grade II/IV or mild to moderate diastolic dysfunction There is mild concentric left ventricular hypertrophy. The left ventricle is grossly normal size. Wall motion cannot be accurately commented on, but no definite regional wall motion abnormalities noted. The right ventricular systolic function is normal. The right atrium is mildly dilated. The left atrium is mildly dilated. There is a trace to mild amount of mitral regurgitation There is no mitral valve stenosis. There is moderate aortic stenosis There is a trace amount of aortic regurgitation There is a peak gradient of 50-55, mean gradient 30 mm of Hg. There is a mild amount of tricuspid regurgitation There is moderate pulmonary hypertension by echo Right ventricular systolic pressure is estimated to be elevated at 50- 60mmHg. Minimal pericardial effusion. MMode/2D Measurements & Calculations RVDd: 3.1 cm LVIDd: 5.2 cmFS: 42.8 % Ao root diam: 3.2 cm IVSd: 1.1 cm LVIDs: 3.0 cmEDV(Teich): 128.2 ml LVPWd: 1.1 cmESV(Teich): 33.9 ml Ao root area: 8.2 cm2 EF(Teich): 73.6 % LA dimension: 3.9 cm LVOT diam: 2.2 cm LVOT area: 3.8 cm2 Doppler Measurements & Calculations MV E max wilner: MV P1/2t max wilner: Ao V2 max: LV V1 max P.4 cm/sec 89.9 cm/sec 371.4 cm/sec 5.7 mmHg MV A max wilner: MV P1/2t: 58.1 msec Ao max PG: LV V1 mean P.3 cm/sec MVA(P1/2t): 3.8 cm2 55.2 mmHg 3.2 mmHg MV E/A: 0.67 MV dec slope: Ao V2 mean: LV V1 max: 453.6 cm/sec2 264.2 cm/sec 119.5 cm/sec Ao mean PG: LV V1 mean: 32.6 mmHg 83.6 cm/sec Ao V2 VTI: LV V1 VTI: 83.7 cm 31.5 cm CARLOS(I,D): 1.4 cm2 CARLOS(V,D): 1.2 cm2 SV(LVOT): 121.0 ml PA V2 max: TR max wilner: 120.7 cm/sec 347.5 cm/sec PA max P.8 mmHg TR max P.3 mmHg Left Ventricle The left ventricle is grossly normal size. There is mild concentric left ventricular hypertrophy. The left ventricular ejection fraction is normal. Doppler measurements suggest pseudonormalized left ventricular relaxation, which is associated with grade II/IV or mild to moderate diastolic dysfunction. Wall motion cannot be accurately commented on, but no definite regional wall motion abnormalities noted. Right Ventricle The right ventricle is mildly dilated. There is normal right ventricular wall thickness. The right ventricular systolic function is normal. Atria The right atrium is mildly dilated. The left atrium is mildly dilated. A patent foramen ovale is suspected. Mitral Valve The mitral valve is grossly normal. There is no mitral valve stenosis. There is a trace to mild amount of mitral regurgitation. Aortic Valve The aortic valve is mildly calcified. There is moderate aortic stenosis. There is a peak gradient of 50-55, mean gradient 30 mm of Hg. There is a trace amount of aortic regurgitation. Tricuspid Valve The tricuspid valve is not well visualized secondary to technical limitations. There is no tricuspid stenosis. There is a mild amount of tricuspid regurgitation. There is moderate pulmonary hypertension by echo. Right ventricular systolic pressure is estimated to be elevated at 50- 60mmHg. Pulmonic Valve The pulmonic valve is not well visualized. Great Vessels The aortic root is not well visualized but is probably normal size. The inferior vena cava appeared normal and decreased > 50% with respiration (RAP 5-10 mmHg). Effusions Minimal pericardial effusion. Incidental Findings Pacemaker wire noted. : TISHA LA > Edgar Tapia
[2017-08-13] MEDS: SENNOSIDES/DOCUSATE 8.6-50 MG 1 EACH TABLET PO SCH (21:10)
[2017-08-13] MEDS: ATORVASTATIN CALCIUM 40 MG TABLET PO SCH (21:12)
[2017-08-13] MEDS ORDERED: METOPROLOL TARTRATE 50 MG TABLET PO SCH (22:00)
[2017-08-14] MEDS: LANSOPRAZOLE 30 MG TAB.RAP.DR PO SCH (05:47)
[2017-08-14] MEDS: DIAZEPAM 2 MG TABLET PO SCH ×2 (05:47→17:48)
[2017-08-14] MEDS: METHYLPREDNISOLONE INJ 40 MG/1 ML SDV IV SCH ×3 (05:48→21:46)
[2017-08-14] MEDS ORDERED: METOPROLOL TARTRATE 50 MG TABLET PO SCH (08:11)
[2017-08-14] MEDS ORDERED: METOPROLOL TARTRATE 25 MG TABLET PO SCH (10:00)
[2017-08-14] MEDS: GUAIFENESIN 600 MG TABLET.SA PO SCH ×2 (10:26→21:47)
[2017-08-14] MEDS: CLOPIDOGREL BISULFATE 75 MG TABLET PO SCH (10:26)
[2017-08-14] MEDS: TAMSULOSIN HCL 0.4 MG CAP.SR.24H PO SCH (10:26)
[2017-08-14] MEDS: FINASTERIDE 5 MG TABLET PO SCH (10:27)
[2017-08-14] MEDS: CYANOCOBALAMIN (VITAMIN B-12) 1,000 MCG TABLET PO SCH (10:27)
[2017-08-14] MEDS: FERROUS SULFATE 325 MG TABLET PO SCH (10:27)
[2017-08-14] MEDS: ASPIRIN 81 MG TABLET, ENT COATED PO SCH (10:29)
[2017-08-14] MEDS: RANOLAZINE 500 MG TAB.SR.12H PO SCH ×2 (10:33→21:47)
[2017-08-14] MEDS: LINEZOLID 300 ML IV SCH ×2 (10:34→21:45)
[2017-08-14] MEDS: CEFEPIME HCL 2 GM in DEXTROSE 5%-WATER 50 ML IV SCH ×2 (10:34→21:45)
--- NOTE | 2017-08-14 16:22 | PDOC PROGRESS REPORT ---
Subjective Progress Note for:: 08/14/17 Subjective:: Patient presents with left side pneumonia and pleuritic chest pain. Patient no longer having chest pain and tachycardia is improved. Patient states he is feeling better. Patient has asking me to reach out to his anti air warfare operations officer Dr. Samuel Guardado in [place] however she has not call me back. Patient has been ambulating in the room. He still become short of breath with minimal activity but states that it is getting better. Reason For Visit: PNEUMONIA Physical Exam Vital Signs: Temp Pulse Resp BP Pulse Ox 97.7 F 74 20 144/50 H 95 08/14/17 11:01 08/14/17 14:00 08/14/17 11:01 08/14/17 11:01 08/14/17 11:01 Intake & Output 08/13/17 08/14/17 08/15/17 06:59 06:59 06:59 Intake Total 1450 1044 1181 Output Total 1200 1460 1150 Balance 250 -416 31 Weight 90.1 kg 89.1 kg General appearance: PRESENT: no acute distress, well-developed, well-nourished Eye exam: ABSENT: scleral icterus Mouth exam: PRESENT: moist Neck exam: ABSENT: carotid bruit, JVD, lymphadenopathy, thyromegaly Respiratory exam: PRESENT: decreased breath sounds - at bases. ABSENT: accessory muscle use, rales, rhonchi, tachypnea, wheezes Cardiovascular exam: PRESENT: RRR. ABSENT: diastolic murmur, rubs, systolic murmur GI/Abdominal exam: PRESENT: normal bowel sounds, soft. ABSENT: distended, guarding, mass, organolmegaly, rebound, tenderness Rectal exam: PRESENT: deferred Extremities exam: PRESENT: full ROM. ABSENT: calf tenderness, clubbing, pedal edema Neurological exam: PRESENT: alert, awake, oriented to person, oriented to place , oriented to time, oriented to situation, CN II-XII grossly intact. ABSENT: motor sensory deficit Psychiatric exam: PRESENT: appropriate affect, normal mood. ABSENT: homicidal ideation, suicidal ideation Skin exam: PRESENT: dry, intact, warm. ABSENT: cyanosis, rash Results Laboratory Results: 08/13/17 13:38 08/13/17 13:38 08/12/17 04:54 Transferrin 224 08/11/17 08/12/17 08/12/17 18:31 00:39 21:05 Creatine Kinase 32 L CK-MB (CK-2) Troponin I 0.013 0.026 08/12/17 21:05 Creatine Kinase CK-MB (CK-2) 2.04 Troponin I 0.047 Impressions: Chest X-Ray 08/11/17 15:26 IMPRESSION: MULTIFOCAL LEFT-SIDED AIRSPACE DISEASE PRESUMABLY REPRESENTS PNEUMONIA IN THE APPROPRIATE CLINICAL SETTING. RECOMMEND FOLLOWUP RADIOGRAPHS IN 4 TO 6 WEEKS TO ENSURE RESOLUTION. Acute Abdomen Series 08/12/17 00:00 IMPRESSION: No acute abdominal disease. Worsening chest radiograph with extensive bilateral airspace disease. Assessment & Plan - Diagnosis (1) Chest pain Qualifiers: Chest pain type: unspecified Qualified Code(s): R07.9 - Chest pain, unspecified Is this a current diagnosis for this admission?: Yes Plan: Resolved. Patient has pleuritic chest pain secondary to his pneumonia which is improving with steroids. Troponins negative. EKG unchanged. The echo showed a normal EF with grade 2/4 systolic dysfunction. Out of continue statin,beta boyd, plavix and aspirin. Continue Ranexa 500mg po bid. (2) Pneumonia Qualifiers: Laterality: bilateral Is this a current diagnosis for this admission?: Yes Plan: Bilateral pneumonia on repeat CXR worsening possibly do to fluid. Patient was restarted on his lasix. Continue cefepime and zyvox. Patient states he fells better. Patient is schedule to have a repeat CT chest with his anti air warfare operations officer on August 22. Attempting to contact patient's anti air warfare operations officer to inform her that her patient has been hospitalized for pneumonia. (3) COPD (chronic obstructive pulmonary disease) Qualifiers: COPD type: unspecified COPD Qualified Code(s): J44.9 - Chronic obstructive pulmonary disease, unspecified Is this a current diagnosis for this admission?: Yes Plan: Patient may be having an exacerbation at this time as he is short of breath and extremely hypoxic with minimal activity. Continue steroids, continue antibiotics. Will change nebs to PRN as patient is becoming tachycardic with the nebs. Consider weaning steroids in the morning. (4) Acute and chronic respiratory failure with hypoxia Is this a current diagnosis for this admission?: Yes Plan: Acute on chronic hypoxic respiratory failure. Oxygen requirements seem to be stabilizing with the improvement of his pneumonia. Will continue to monitor. (5) Hypertension Qualifiers: Hypertension type: essential hypertension Qualified Code(s): I10 - Essential (primary) hypertension Is this a current diagnosis for this admission?: Yes Plan: Stable. continue to monitor. Patient currently on metoprolol and Lasix.. (6) CKD (chronic kidney disease) stage 4, GFR 15-29 ml/min Is this a current diagnosis for this admission?: Yes Plan: Possibly chronic in nature as patient also has anemia. Patient creatinine has trended down from 2.34-2.13. Will continue holding lisinopril for acute on chronic renal failure. (7) Anemia Qualifiers: Anemia type: due to chronic kidney disease Chronic kidney disease stage: stage 4 (severe) Qualified Code(s): N18.4 - Chronic kidney disease, stage 4 ( severe); D63.1 - Anemia in chronic kidney disease; D63.1 - Anemia in chronic kidney disease Is this a current diagnosis for this admission?: Yes Plan: This is anemia of chronic renal disease. Patient is on iron as one of his home medications. (8) Thrombocytopenia Is this a current diagnosis for this admission?: Yes Plan: Patient platelets are actually lower today. No clear signs of bleeding. Platelets are now 106,000. Continue plavix and aspirin as patient has extensive cardiac history and has been complaining of chest pain. SCD for DVT prophylaxis. (9) HLD (hyperlipidemia) Qualifiers: Hyperlipidemia type: unspecified Qualified Code(s): E78.5 - Hyperlipidemia , unspecified Is this a current diagnosis for this admission?: Yes Plan: Continue statin. (10) Hyperkalemia Is this a current diagnosis for this admission?: Yes Plan: Resolved. Patient potassium from 08/13/2017 was 4.4. That is down from 5.2. This is most likely secondary to his acute on chronic CKD stage 3-4. (11) Tachycardia Is this a current diagnosis for this admission?: Yes Plan: Resolved after breathing treatments were discontinued. (12) Diastolic heart failure Qualifiers: Heart failure chronicity: chronic Qualified Code(s): I50.32 - Chronic diastolic (congestive) heart failure Is this a current diagnosis for this admission?: Yes Plan: Patient with grade 2/4 heart failure. Patient appears compensated. Patient currently on beta-boyd and Lasix. Lisinopril is being held for acute on chronic renal failure. Will resume lisinopril on discharge. (13) Pulmonary hypertension Is this a current diagnosis for this admission?: Yes Plan: With the RVSP of 50-60 mmHg which is consistent with moderate to severe pulmonary hypertension. Patient is currently on home oxygen. Patient also follows with a anti air warfare operations officer. This addition to his pneumonia may explain his severe shortness of breath with minimal activity. - Time Time Spent with patient: Less than 15 minutes Anticipated discharge: Home with Homehealth Within: within 48 hours - Inpatient Certification Medical Necessity: Significant Comorbidiites Make Outpatient Treatment Too Risky , Need Close Monitoring Due to Risk of Patient Decompensation, Need for IV Antibiotics
[2017-08-14] MEDS ORDERED: METOPROLOL TARTRATE PF/INJ 5 MG/5 ML SDV IV PRN (17:01)
[2017-08-14] MEDS ORDERED: DILTIAZEM HCL INJ 25 MG/5 ML VIAL IV ONE (17:45)
[2017-08-14] MEDS: ATORVASTATIN CALCIUM 40 MG TABLET PO SCH (21:47)
[2017-08-14] MEDS: METOPROLOL TARTRATE 25 MG TABLET PO SCH (21:48)
[2017-08-14] MEDS: SENNOSIDES/DOCUSATE 8.6-50 MG 1 EACH TABLET PO SCH (21:48)
[2017-08-15 04:25] LABS: ANION GAP 9 (5-19); BLOOD UREA NITROGEN 70 mg/dL (7-20); CALCIUM 9.4 mg/dL (8.4-10.2); CARBON DIOXIDE 26 mmol/L (22-30); CHLORIDE 103 mmol/L (98-107); GLUCOSE 188 mg/dL (75-110); POTASSIUM 5.1 mmol/L (3.6-5.0); SODIUM 137.7 mmol/L (137-145)
[2017-08-15] MEDS: DIAZEPAM 2 MG TABLET PO SCH ×2 (05:30→18:20)
[2017-08-15] MEDS: METHYLPREDNISOLONE INJ 40 MG/1 ML SDV IV SCH ×3 (05:30→21:29)
[2017-08-15] MEDS: LANSOPRAZOLE 30 MG TAB.RAP.DR PO SCH (05:30)
--- NOTE | 2017-08-15 07:57 | EKG REPORT ---
SEVERITY:- ABNORMAL ECG - ATRIAL FIBRILLATION RIGHT BUNDLE BRANCH BLOCK : Confirmed by: Ailin Rees MD 15-Aug-2017 07:56:03
[2017-08-15] MEDS: CEFEPIME HCL 2 GM in DEXTROSE 5%-WATER 50 ML IV SCH ×2 (10:31→21:29)
[2017-08-15] MEDS: LINEZOLID 300 ML IV SCH ×2 (10:31→21:28)
[2017-08-15] MEDS: FINASTERIDE 5 MG TABLET PO SCH (10:32)
[2017-08-15] MEDS: CYANOCOBALAMIN (VITAMIN B-12) 1,000 MCG TABLET PO SCH (10:32)
[2017-08-15] MEDS: CLOPIDOGREL BISULFATE 75 MG TABLET PO SCH (10:32)
[2017-08-15] MEDS: METOPROLOL TARTRATE 25 MG TABLET PO SCH ×2 (10:32→21:28)
[2017-08-15] MEDS: GUAIFENESIN 600 MG TABLET.SA PO SCH ×2 (10:33→21:28)
[2017-08-15] MEDS: ASPIRIN 81 MG TABLET, ENT COATED PO SCH (10:34)
[2017-08-15] MEDS: FERROUS SULFATE 325 MG TABLET PO SCH (10:34)
[2017-08-15] MEDS: TAMSULOSIN HCL 0.4 MG CAP.SR.24H PO SCH (10:34)
[2017-08-15] MEDS: RANOLAZINE 500 MG TAB.SR.12H PO SCH ×2 (14:39→21:28)
[2017-08-15] MEDS: ATORVASTATIN CALCIUM 40 MG TABLET PO SCH (21:28)
[2017-08-15] MEDS: SENNOSIDES/DOCUSATE 8.6-50 MG 1 EACH TABLET PO SCH (21:28)
[2017-08-16] MEDS ORDERED: HYDRALAZINE HCL INJ/PF 20 MG/1 ML SDV IV ONE (05:15)
[2017-08-16] MEDS: LANSOPRAZOLE 30 MG TAB.RAP.DR PO SCH (05:15)
[2017-08-16] MEDS: METHYLPREDNISOLONE INJ 40 MG/1 ML SDV IV SCH ×2 (05:15→15:07)
[2017-08-16] MEDS: DIAZEPAM 2 MG TABLET PO SCH ×2 (05:16→21:19)
[2017-08-16] MEDS: CEFEPIME HCL 2 GM in DEXTROSE 5%-WATER 50 ML IV SCH ×2 (11:04→21:19)
[2017-08-16] MEDS: LINEZOLID 300 ML IV SCH ×2 (11:04→21:19)
[2017-08-16] MEDS: RANOLAZINE 500 MG TAB.SR.12H PO SCH ×2 (11:05→21:19)
[2017-08-16] MEDS: CLOPIDOGREL BISULFATE 75 MG TABLET PO SCH (11:05)
[2017-08-16] MEDS: METOPROLOL TARTRATE 25 MG TABLET PO SCH ×2 (11:05→21:19)
[2017-08-16] MEDS: FINASTERIDE 5 MG TABLET PO SCH (11:05)
[2017-08-16] MEDS: TAMSULOSIN HCL 0.4 MG CAP.SR.24H PO SCH (11:06)
[2017-08-16] MEDS: GUAIFENESIN 600 MG TABLET.SA PO SCH ×2 (11:06→21:20)
[2017-08-16] MEDS: CYANOCOBALAMIN (VITAMIN B-12) 1,000 MCG TABLET PO SCH (11:06)
[2017-08-16] MEDS: ASPIRIN 81 MG TABLET, ENT COATED PO SCH (11:06)
[2017-08-16] MEDS: FERROUS SULFATE 325 MG TABLET PO SCH (11:06)
[2017-08-16] MEDS: HYDRALAZINE HCL INJ/PF 20 MG/1 ML SDV IV PRN (21:19)
[2017-08-16] MEDS: SENNOSIDES/DOCUSATE 8.6-50 MG 1 EACH TABLET PO SCH (21:21)
[2017-08-16] MEDS: ATORVASTATIN CALCIUM 40 MG TABLET PO SCH (21:21)
[2017-08-16] MEDS: NITROGLYCERIN 0.4 MG/TAB 25 TAB/BOTTLE SL PRN (21:41)
[2017-08-16] MEDS ORDERED: METHYLPREDNISOLONE INJ 40 MG/1 ML SDV IV SCH (22:00)
[2017-08-17] MEDS: LANSOPRAZOLE 30 MG TAB.RAP.DR PO SCH (05:30)
[2017-08-17] MEDS: HYDRALAZINE HCL INJ/PF 20 MG/1 ML SDV IV PRN (05:32)
[2017-08-17] MEDS: CLOPIDOGREL BISULFATE 75 MG TABLET PO SCH (09:30)
[2017-08-17] MEDS: FINASTERIDE 5 MG TABLET PO SCH (09:30)
[2017-08-17] MEDS: TAMSULOSIN HCL 0.4 MG CAP.SR.24H PO SCH (09:30)
[2017-08-17] MEDS: GUAIFENESIN 600 MG TABLET.SA PO SCH (09:30)
[2017-08-17] MEDS: METOPROLOL TARTRATE 25 MG TABLET PO SCH ×2 (09:31→22:09)
[2017-08-17] MEDS: CYANOCOBALAMIN (VITAMIN B-12) 1,000 MCG TABLET PO SCH (09:31)
[2017-08-17] MEDS: CEFEPIME HCL 2 GM in DEXTROSE 5%-WATER 50 ML IV SCH ×2 (09:31→22:09)
[2017-08-17] MEDS: FERROUS SULFATE 325 MG TABLET PO SCH (09:31)
[2017-08-17] MEDS: LINEZOLID 300 ML IV SCH ×2 (09:38→22:09)
[2017-08-17] MEDS: RANOLAZINE 500 MG TAB.SR.12H PO SCH ×2 (09:39→22:09)
[2017-08-17] MEDS: ASPIRIN 81 MG TABLET, ENT COATED PO SCH (09:40)
[2017-08-17] MEDS ORDERED: PREDNISONE 20 MG TABLET PO SCH (10:00)
[2017-08-17] MEDS: PREDNISONE 20 MG TABLET PO SCH (12:20)
[2017-08-17] MEDS: SENNOSIDES/DOCUSATE 8.6-50 MG 1 EACH TABLET PO SCH (22:07)
[2017-08-17] MEDS: ATORVASTATIN CALCIUM 40 MG TABLET PO SCH (22:08)
[2017-08-17] MEDS: DIAZEPAM 2 MG TABLET PO SCH (22:08)
[2017-08-18] MEDS: LANSOPRAZOLE 30 MG TAB.RAP.DR PO SCH (06:13)
[2017-08-18] MEDS: HYDRALAZINE HCL INJ/PF 20 MG/1 ML SDV IV PRN (06:21)
[2017-08-18] MEDS: CYANOCOBALAMIN (VITAMIN B-12) 1,000 MCG TABLET PO SCH (09:32)
[2017-08-18] MEDS: FERROUS SULFATE 325 MG TABLET PO SCH (09:32)
[2017-08-18] MEDS: FINASTERIDE 5 MG TABLET PO SCH (09:32)
[2017-08-18] MEDS: ASPIRIN 81 MG TABLET, ENT COATED PO SCH (09:33)
[2017-08-18] MEDS: CLOPIDOGREL BISULFATE 75 MG TABLET PO SCH (09:33)
[2017-08-18] MEDS: METOPROLOL TARTRATE 25 MG TABLET PO SCH (09:33)
[2017-08-18] MEDS: TAMSULOSIN HCL 0.4 MG CAP.SR.24H PO SCH (09:33)
[2017-08-18] MEDS: CEFEPIME HCL 2 GM in DEXTROSE 5%-WATER 50 ML IV SCH (09:33)
[2017-08-18] MEDS: LINEZOLID 300 ML IV SCH (09:34)
[2017-08-18] MEDS: RANOLAZINE 500 MG TAB.SR.12H PO SCH (09:35)
[2017-08-18] MEDS ORDERED: CLONIDINE HCL 0.1 MG TABLET PO ONE (09:53)
[2017-08-18] MEDS ORDERED: (PENDING PHARMACY ID) (Lisinopril [Zestril] 20 MG) PO SCH (10:00)
[2017-08-18] MEDS ORDERED: LISINOPRIL 10 MG TABLET PO SCH (11:00)
[2017-08-18] MEDS ORDERED: AMLODIPINE BESYLATE 10 MG TABLET PO SCH (11:00)
[2017-08-18] MEDS ORDERED: FUROSEMIDE 20 MG TABLET PO SCH (11:00)
[2017-08-18 12:33] VITALS: BP 106/64
[2017-08-18] MEDS: PREDNISONE 20 MG TABLET PO SCH (14:09)
--- NOTE | 2017-08-19 12:16 | PDOC PROGRESS REPORT ---
Subjective Progress Note for:: 08/15/17 Subjective:: Patient presents with left side pneumonia and pleuritic chest pain. Patient no longer having chest pain and tachycardia is improved. Patient states he is feeling better. Patient has asking me to reach out to his breaker machine tender Dr. Samuel Guardado in [place] however she has not call me back. Is ambulating however still feels significantly short of breath. Patient is not back to his baseline. Reason For Visit: PNEUMONIA Physical Exam Vital Signs: Temp Pulse Resp BP Pulse Ox 97.4 F 65 18 147/56 H 91 L 08/15/17 15:55 08/15/17 16:48 08/15/17 16:48 08/15/17 15:55 08/15/17 16:48 Intake & Output 08/14/17 08/15/17 08/16/17 06:59 06:59 06:59 Intake Total 1044 2051 1447 Output Total 1460 2275 750 Balance -416 -224 697 Weight 89.1 kg 89.6 kg General appearance: PRESENT: no acute distress, well-developed, well-nourished Head exam: PRESENT: normocephalic Eye exam: ABSENT: scleral icterus Mouth exam: PRESENT: moist Neck exam: ABSENT: carotid bruit, JVD, lymphadenopathy, thyromegaly Respiratory exam: PRESENT: clear to auscultation jenni, decreased breath sounds - Decreased breath sounds at left lung base., unlabored. ABSENT: rales, rhonchi, wheezes Cardiovascular exam: PRESENT: RRR. ABSENT: diastolic murmur, rubs, systolic murmur GI/Abdominal exam: PRESENT: normal bowel sounds, soft. ABSENT: distended, guarding, mass, organolmegaly, rebound, tenderness Rectal exam: PRESENT: deferred Extremities exam: PRESENT: full ROM. ABSENT: calf tenderness, clubbing, pedal edema Neurological exam: PRESENT: alert, awake, oriented to person, oriented to place , oriented to time, oriented to situation, CN II-XII grossly intact. ABSENT: motor sensory deficit Psychiatric exam: PRESENT: appropriate affect, normal mood. ABSENT: homicidal ideation, suicidal ideation Skin exam: PRESENT: dry, intact, warm. ABSENT: cyanosis, rash Results Laboratory Results: 08/13/17 13:38 08/15/17 04:00 08/15/17 04:00 Sodium 137.7 Potassium 5.1 H Chloride 103 Carbon Dioxide 26 Anion Gap 9 BUN 70 H Creatinine 2.01 H Est GFR ( Amer) 39 L Est GFR (Non-Af Amer) 32 L Glucose 188 H Calcium 9.4 08/11/17 08/12/17 08/12/17 18:31 00:39 21:05 Creatine Kinase 32 L CK-MB (CK-2) Troponin I 0.013 0.026 08/12/17 21:05 Creatine Kinase CK-MB (CK-2) 2.04 Troponin I 0.047 Impressions: Chest X-Ray 08/11/17 15:26 IMPRESSION: MULTIFOCAL LEFT-SIDED AIRSPACE DISEASE PRESUMABLY REPRESENTS PNEUMONIA IN THE APPROPRIATE CLINICAL SETTING. RECOMMEND FOLLOWUP RADIOGRAPHS IN 4 TO 6 WEEKS TO ENSURE RESOLUTION. Acute Abdomen Series 08/12/17 00:00 IMPRESSION: No acute abdominal disease. Worsening chest radiograph with extensive bilateral airspace disease. Assessment & Plan - Diagnosis (1) Chest pain Qualifiers: Chest pain type: unspecified Qualified Code(s): R07.9 - Chest pain, unspecified Is this a current diagnosis for this admission?: Yes Plan: Resolved. Patient has pleuritic chest pain secondary to his pneumonia which is improving with steroids. Troponins negative. EKG unchanged. The echo showed a normal EF with grade 2/4 systolic dysfunction. Out of continue statin,beta boyd, plavix and aspirin. Continue Ranexa 500mg po bid. (2) Pneumonia Qualifiers: Laterality: bilateral Is this a current diagnosis for this admission?: Yes Plan: Bilateral pneumonia on repeat CXR worsening possibly do to fluid. Patient was restarted on his lasix. Continue cefepime and zyvox. Patient states he feeling better every day however his breathing is not back to normal. Patient is schedule to have a repeat CT chest with his breaker machine tender on August 22. Attempting to contact patient's breaker machine tender to inform her that her patient has been hospitalized for pneumonia. (3) COPD (chronic obstructive pulmonary disease) Qualifiers: COPD type: unspecified COPD Qualified Code(s): J44.9 - Chronic obstructive pulmonary disease, unspecified Is this a current diagnosis for this admission?: Yes Plan: Patient may be having an exacerbation at this time as he is short of breath and extremely hypoxic with minimal activity. Continue steroids, continue antibiotics and as needed nebs. Will start weaning nebs. (4) Acute and chronic respiratory failure with hypoxia Is this a current diagnosis for this admission?: Yes Plan: Acute on chronic hypoxic respiratory failure. Oxygen requirements seem to be stabilizing with the improvement of his pneumonia. Will continue to monitor. Patient is still requiring more oxygen than he uses at home. Continue to wean as tolerated. (5) Hypertension Qualifiers: Hypertension type: essential hypertension Qualified Code(s): I10 - Essential (primary) hypertension Is this a current diagnosis for this admission?: Yes Plan: Stable. continue to monitor. Patient currently on metoprolol and Lasix. (6) CKD (chronic kidney disease) stage 4, GFR 15-29 ml/min Is this a current diagnosis for this admission?: Yes Plan: Possibly chronic in nature as patient also has anemia. Pa creatinine is even better today down to 2.01 from 2.13. Will continue holding lisinopril for acute on chronic renal failure. (7) Anemia Qualifiers: Anemia type: due to chronic kidney disease Chronic kidney disease stage: stage 4 (severe) Qualified Code(s): N18.4 - Chronic kidney disease, stage 4 ( severe); D63.1 - Anemia in chronic kidney disease; D63.1 - Anemia in chronic kidney disease Is this a current diagnosis for this admission?: Yes Plan: He has anemia of chronic renal disease. Will continue supplemental iron. (8) Thrombocytopenia Is this a current diagnosis for this admission?: Yes Plan: Patient platelets are actually lower today. No clear signs of bleeding. Platelets are now 106,000. Continue plavix and aspirin as patient has extensive cardiac history and has been complaining of chest pain. SCD for DVT prophylaxis. (9) HLD (hyperlipidemia) Qualifiers: Hyperlipidemia type: unspecified Qualified Code(s): E78.5 - Hyperlipidemia , unspecified Is this a current diagnosis for this admission?: Yes Plan: Continue statin. (10) Hyperkalemia Is this a current diagnosis for this admission?: Yes Plan: Improved. Reat potassium 5.1 today. This is most likely secondary to his acute on chronic CKD stage 3-4. (11) Tachycardia Is this a current diagnosis for this admission?: Yes Plan: Resolved after breathing treatments were discontinued. (12) Diastolic heart failure Qualifiers: Heart failure chronicity: chronic Qualified Code(s): I50.32 - Chronic diastolic (congestive) heart failure Is this a current diagnosis for this admission?: Yes Plan: Patient with grade 2/4 heart failure. Patient appears compensated. Patient currently on beta-boyd and Lasix. Lisinopril is being held for acute on chronic renal failure. Will resume lisinopril on discharge. (13) Pulmonary hypertension Is this a current diagnosis for this admission?: Yes Plan: With the RVSP of 50-60 mmHg which is consistent with moderate to severe pulmonary hypertension. Patient is currently on home oxygen. Patient also follows with a breaker machine tender. This addition to his pneumonia may explain his severe shortness of breath with minimal activity. (14) Bacteremia Is this a current diagnosis for this admission?: Yes Plan: Positive cocci in 1 out of 2 bottles. This could possibly be a contaminant. Patient is already on Zyvox. No growth on repeat blood cultures. - Time Time Spent with patient: Less than 15 minutes Anticipated discharge: Home with Homehealth Within: within 72 hours - Inpatient Certification Medical Necessity: Significant Comorbidiites Make Outpatient Treatment Too Risky , Need Close Monitoring Due to Risk of Patient Decompensation, Need For Continuous Telemetry Monitoring, Need for IV Antibiotics
--- NOTE | 2017-08-19 12:40 | PDOC PROGRESS REPORT ---
Subjective Progress Note for:: 08/16/17 Subjective:: Patient presents with left side pneumonia and pleuritic chest pain. Patient no longer having chest pain and tachycardia is improved. Patient states he is feeling better. Dr. Samuel Guardado carton waxing machine operator finally called back. She stated that patient was supposed to follow-up with him. She also stated that he has a chronic abnormality on the left side of his lung and abnormal findings that need further evaluation. Patient is doing better today also although he did have some chest pain overnight and was given nitroglycerin. Patient states he plans on ambulating today. Reason For Visit: PNEUMONIA Physical Exam Vital Signs: Temp Pulse Resp BP Pulse Ox 97.7 F 73 16 172/66 H 95 08/16/17 20:23 08/16/17 20:23 08/16/17 20:23 08/16/17 20:23 08/16/17 20:23 Intake & Output 08/15/17 08/16/17 08/17/17 06:59 06:59 06:59 Intake Total 2051 1807 704 Output Total 2275 750 425 Balance -224 1057 279 Weight 89.6 kg 90.4 kg General appearance: PRESENT: no acute distress, well-developed, well-nourished Eye exam: ABSENT: scleral icterus Neck exam: ABSENT: carotid bruit, JVD, lymphadenopathy, thyromegaly Respiratory exam: PRESENT: clear to auscultation jenni, decreased breath sounds - left lung base. ABSENT: rales, rhonchi, wheezes Cardiovascular exam: PRESENT: RRR. ABSENT: diastolic murmur, rubs, systolic murmur Pulses: PRESENT: normal dorsalis pedis pul Vascular exam: PRESENT: normal capillary refill GI/Abdominal exam: PRESENT: normal bowel sounds, soft. ABSENT: distended, guarding, mass, organolmegaly, rebound, tenderness Rectal exam: PRESENT: deferred Extremities exam: PRESENT: full ROM. ABSENT: calf tenderness, clubbing, pedal edema Neurological exam: PRESENT: alert, awake, oriented to person, oriented to place , oriented to time, oriented to situation, CN II-XII grossly intact. ABSENT: motor sensory deficit Psychiatric exam: PRESENT: appropriate affect, normal mood. ABSENT: homicidal ideation, suicidal ideation Skin exam: PRESENT: dry, intact, warm. ABSENT: cyanosis, rash Results Laboratory Results: 08/13/17 13:38 08/15/17 04:00 08/11/17 18:31 Blood Blood Culture - Final NO GROWTH IN 5 DAYS 08/11/17 08/12/17 08/12/17 18:31 00:39 21:05 Creatine Kinase 32 L CK-MB (CK-2) Troponin I 0.013 0.026 08/12/17 21:05 Creatine Kinase CK-MB (CK-2) 2.04 Troponin I 0.047 Impressions: Chest X-Ray 08/11/17 15:26 IMPRESSION: MULTIFOCAL LEFT-SIDED AIRSPACE DISEASE PRESUMABLY REPRESENTS PNEUMONIA IN THE APPROPRIATE CLINICAL SETTING. RECOMMEND FOLLOWUP RADIOGRAPHS IN 4 TO 6 WEEKS TO ENSURE RESOLUTION. Acute Abdomen Series 08/12/17 00:00 IMPRESSION: No acute abdominal disease. Worsening chest radiograph with extensive bilateral airspace disease. Assessment & Plan - Diagnosis (1) Chest pain Qualifiers: Chest pain type: unspecified Qualified Code(s): R07.9 - Chest pain, unspecified Is this a current diagnosis for this admission?: Yes Plan: Resolved. Patient has pleuritic chest pain secondary to his pneumonia which is improving with steroids. Troponins negative. EKG unchanged. The echo showed a normal EF with grade 2/4 systolic dysfunction. Continue statin,beta boyd, plavix and aspirin. Continue Ranexa 500mg po bid. Patient given PRN nitro. (2) Pneumonia Qualifiers: Laterality: bilateral Is this a current diagnosis for this admission?: Yes Plan: Bilateral pneumonia on repeat CXR worsening possibly do to fluid. Patient was restarted on his lasix. Continue cefepime and zyvox. Patient states he feeling better every day however his breathing is not back to normal. Patient is schedule to have a repeat CT chest with his carton waxing machine operator on August 22. Spoke with patients' carton waxing machine operator who recommends moxifloxacin to complete his antibiotic course for 10 days. She stressed that patient should keep his appointment on August 22 at 2:30 PM. (3) COPD (chronic obstructive pulmonary disease) Qualifiers: COPD type: unspecified COPD Qualified Code(s): J44.9 - Chronic obstructive pulmonary disease, unspecified Is this a current diagnosis for this admission?: Yes Plan: Patient may be having an exacerbation at this time as he is short of breath and extremely hypoxic with minimal activity. Continue steroids, continue antibiotics and as needed nebs. Will continue weaning steroids. (4) Acute and chronic respiratory failure with hypoxia Is this a current diagnosis for this admission?: Yes Plan: Acute on chronic hypoxic respiratory failure. Oxygen requirements seem to be stabilizing with the improvement of his pneumonia. Will continue to monitor. Patient is still requiring more oxygen than he uses at home. Continue to wean steroids as tolerated. (5) Hypertension Qualifiers: Hypertension type: essential hypertension Qualified Code(s): I10 - Essential (primary) hypertension Is this a current diagnosis for this admission?: Yes Plan: Stable. continue to monitor. Patient currently on metoprolol and Lasix. Will resume his home antibiotics as tolerated. (6) CKD (chronic kidney disease) stage 4, GFR 15-29 ml/min Is this a current diagnosis for this admission?: Yes Plan: Possibly chronic in nature as patient also has anemia. Creatinine improving. Resume lisinopril on discharge home. (7) Anemia Qualifiers: Anemia type: due to chronic kidney disease Chronic kidney disease stage: stage 4 (severe) Qualified Code(s): N18.4 - Chronic kidney disease, stage 4 ( severe); D63.1 - Anemia in chronic kidney disease; D63.1 - Anemia in chronic kidney disease Is this a current diagnosis for this admission?: Yes Plan: Anemia of chronic renal disease. Will continue supplemental iron. (8) Thrombocytopenia Is this a current diagnosis for this admission?: Yes Plan: Patient platelets are actually lower today. No clear signs of bleeding. Platelets are now 106,000. Continue plavix and aspirin as patient has extensive cardiac history and has been complaining of chest pain. SCD for DVT prophylaxis. (9) HLD (hyperlipidemia) Qualifiers: Hyperlipidemia type: unspecified Qualified Code(s): E78.5 - Hyperlipidemia , unspecified Is this a current diagnosis for this admission?: Yes Plan: Continue statin. (10) Hyperkalemia Is this a current diagnosis for this admission?: Yes Plan: Improved. Reat potassium 5.1 today. This is most likely secondary to his acute on chronic CKD stage 3-4. (11) Tachycardia Is this a current diagnosis for this admission?: Yes Plan: Resolved with the discontinuation of breathing treatments. (12) Diastolic heart failure Qualifiers: Heart failure chronicity: chronic Qualified Code(s): I50.32 - Chronic diastolic (congestive) heart failure Is this a current diagnosis for this admission?: Yes Plan: Patient with grade 2/4 heart failure. Patient appears compensated. Patient currently on beta-boyd and Lasix. Lisinopril is being held for acute on chronic renal failure. Will resume lisinopril on discharge. (13) Pulmonary hypertension Is this a current diagnosis for this admission?: Yes Plan: With the RVSP of 50-60 mmHg which is consistent with moderate to severe pulmonary hypertension. Patient is currently on home oxygen. Patient also follows with a carton waxing machine operator. This addition to his pneumonia may explain his severe shortness of breath with minimal activity. (14) Bacteremia Is this a current diagnosis for this admission?: Yes Plan: Positive cocci in 1 out of 2 bottles. Probable contaminant. Patient is already on Zyvox. No growth on repeat blood cultures. - Time Time Spent with patient: Less than 15 minutes Anticipated discharge: Home Within: within 48 hours - Inpatient Certification Medical Necessity: Need For Continuous Telemetry Monitoring, Need for Nebulizer Therapy and Monitoring of Response, Need for IV Antibiotics
--- NOTE | 2017-08-19 13:00 | PDOC PROGRESS REPORT ---
Subjective Progress Note for:: 08/17/17 Subjective:: Patient presents with left side pneumonia and pleuritic chest pain. Patient no longer having chest pain and tachycardia is improved. Patient states he is feeling better. Dr. Samuel Guardado master planner finally called back. She stated that patient was supposed to follow-up with him. She also stated that he has a chronic abnormality on the left side of his lung and abnormal findings that need further evaluation. Patient currently doing better today. Patient states that his fast heart rate resulted from him eating black licorice. Patient states that his breathing is still not back to baseline. Reason For Visit: PNEUMONIA Physical Exam Vital Signs: Selected Entries 08/17/17 20:23 Temperature 97.8 F Temperature Oral Source Pulse Rate 82 Respiratory 16 Rate Blood Pressure 153/48 H Blood Pressure 83 Mean BP Location Right Arm BP Position Sitting O2 Sat by Pulse 95 Oximetry Oxygen Delivery Nasal Cannula Method General appearance: PRESENT: no acute distress, well-developed, well-nourished Eye exam: PRESENT: EOMI. ABSENT: scleral icterus Ear exam: PRESENT: normal external ear exam Mouth exam: PRESENT: moist Neck exam: ABSENT: carotid bruit, JVD, lymphadenopathy, thyromegaly Respiratory exam: PRESENT: clear to auscultation jenni. ABSENT: rales, rhonchi, wheezes Cardiovascular exam: PRESENT: RRR. ABSENT: diastolic murmur, rubs, systolic murmur Pulses: PRESENT: normal dorsalis pedis pul Vascular exam: PRESENT: normal capillary refill GI/Abdominal exam: PRESENT: normal bowel sounds, soft. ABSENT: distended, guarding, mass, organolmegaly, rebound, tenderness Rectal exam: PRESENT: deferred Extremities exam: PRESENT: full ROM. ABSENT: calf tenderness, clubbing, pedal edema Neurological exam: PRESENT: alert, awake, oriented to person, oriented to place , oriented to time, oriented to situation, CN II-XII grossly intact. ABSENT: motor sensory deficit Psychiatric exam: PRESENT: appropriate affect, normal mood. ABSENT: homicidal ideation, suicidal ideation Skin exam: PRESENT: dry, intact, warm. ABSENT: cyanosis, rash Results Laboratory Results: 08/13/17 13:38 08/15/17 04:00 08/14/17 12:29 Blood Blood Culture - Final NO GROWTH IN 5 DAYS 08/11/17 08/12/17 08/12/17 18:31 00:39 21:05 Creatine Kinase 32 L CK-MB (CK-2) Troponin I 0.013 0.026 08/12/17 21:05 Creatine Kinase CK-MB (CK-2) 2.04 Troponin I 0.047 Impressions: Chest X-Ray 08/11/17 15:26 IMPRESSION: MULTIFOCAL LEFT-SIDED AIRSPACE DISEASE PRESUMABLY REPRESENTS PNEUMONIA IN THE APPROPRIATE CLINICAL SETTING. RECOMMEND FOLLOWUP RADIOGRAPHS IN 4 TO 6 WEEKS TO ENSURE RESOLUTION. Acute Abdomen Series 08/12/17 00:00 IMPRESSION: No acute abdominal disease. Worsening chest radiograph with extensive bilateral airspace disease. Assessment & Plan - Diagnosis (1) Chest pain Qualifiers: Chest pain type: unspecified Qualified Code(s): R07.9 - Chest pain, unspecified Is this a current diagnosis for this admission?: Yes Plan: Resolved. Patient has pleuritic chest pain secondary to his pneumonia which is improving with steroids. Troponins negative. EKG unchanged. The echo showed a normal EF with grade 2/4 systolic dysfunction. Continue statin,beta boyd, plavix and aspirin. Continue Ranexa 500mg po bid. Patient given PRN nitro. (2) Pneumonia Qualifiers: Laterality: bilateral Is this a current diagnosis for this admission?: Yes Plan: Bilateral pneumonia on repeat CXR worsening possibly do to fluid. Patient was restarted on his lasix. Continue cefepime and zyvox. Patient states he feeling better every day however his breathing is not back to normal. Patient is schedule to have a repeat CT chest with his master planner on August 22. Spoke with patients' master planner who recommends moxifloxacin to complete his antibiotic course for 10 days. She stressed that patient should keep his appointment on August 22 at 2:30 PM. (3) COPD (chronic obstructive pulmonary disease) Qualifiers: COPD type: unspecified COPD Qualified Code(s): J44.9 - Chronic obstructive pulmonary disease, unspecified Is this a current diagnosis for this admission?: Yes Plan: Patient may be having an exacerbation at this time as he is short of breath and extremely hypoxic with minimal activity. Continue steroids, continue antibiotics and as needed nebs. Patient on oral steroids. (4) Acute and chronic respiratory failure with hypoxia Is this a current diagnosis for this admission?: Yes Plan: Acute on chronic hypoxic respiratory failure. Oxygen requirements seem to be stabilizing with the improvement of his pneumonia. Will continue to monitor. Patient requiring less oxygen. He has been using 2L. Continue to wean steroids as tolerated. (5) Hypertension Qualifiers: Hypertension type: essential hypertension Qualified Code(s): I10 - Essential (primary) hypertension Is this a current diagnosis for this admission?: Yes Plan: Stable. continue to monitor. Patient currently on metoprolol and Lasix. Will resume his home medications as tolerated. (6) CKD (chronic kidney disease) stage 4, GFR 15-29 ml/min Is this a current diagnosis for this admission?: Yes Plan: Possibly chronic in nature as patient also has anemia. Creatinine improving. Resume lisinopril on discharge home. (7) Anemia Qualifiers: Anemia type: due to chronic kidney disease Chronic kidney disease stage: stage 4 (severe) Qualified Code(s): N18.4 - Chronic kidney disease, stage 4 ( severe); D63.1 - Anemia in chronic kidney disease; D63.1 - Anemia in chronic kidney disease Is this a current diagnosis for this admission?: Yes Plan: Anemia of chronic renal disease. Will continue supplemental iron. (8) Thrombocytopenia Is this a current diagnosis for this admission?: Yes Plan: Patient platelets are actually lower today. No clear signs of bleeding. Platelets are now 106,000. Continue plavix and aspirin as patient has extensive cardiac history and has been complaining of chest pain. SCD for DVT prophylaxis. (9) HLD (hyperlipidemia) Qualifiers: Hyperlipidemia type: unspecified Qualified Code(s): E78.5 - Hyperlipidemia , unspecified Is this a current diagnosis for this admission?: Yes Plan: Continue statin. (10) Hyperkalemia Is this a current diagnosis for this admission?: Yes Plan: Improved. Repeat potassium was 5.1. This is most likely secondary to his acute on chronic CKD stage 3-4. (11) Tachycardia Is this a current diagnosis for this admission?: Yes Plan: Resolved with the discontinuation of breathing treatments. (12) Diastolic heart failure Qualifiers: Heart failure chronicity: chronic Qualified Code(s): I50.32 - Chronic diastolic (congestive) heart failure Is this a current diagnosis for this admission?: Yes Plan: Patient with grade 2/4 heart failure. Patient appears compensated. Patient currently on beta-boyd and Lasix. Lisinopril is being held for acute on chronic renal failure. Will resume lisinopril on discharge. (13) Pulmonary hypertension Is this a current diagnosis for this admission?: Yes Plan: With the RVSP of 50-60 mmHg which is consistent with moderate to severe pulmonary hypertension. Patient is currently on home oxygen. Patient also follows with a master planner. This addition to his pneumonia may explain his severe shortness of breath with minimal activity. (14) Bacteremia Is this a current diagnosis for this admission?: Yes Plan: Positive cocci in 1 out of 2 bottles. Probable contaminant. Patient is already on Zyvox. No growth on repeat blood cultures. - Time Time Spent with patient: Less than 15 minutes Anticipated discharge: Home - Inpatient Certification Medical Necessity: Need For Continuous Telemetry Monitoring, Need for IV Antibiotics
--- NOTE | 2017-08-19 13:44 | PDOC DISCHARGE SUMMARY ---
General - Admit/Disc Date/PCP Admission Date/Primary Care Provider: 08/11/17 17:46 Discharge Date: 08/18/17 - Discharge Diagnosis (1) Chest pain Is this a current diagnosis for this admission?: Yes (2) Pneumonia Is this a current diagnosis for this admission?: Yes (3) COPD (chronic obstructive pulmonary disease) Is this a current diagnosis for this admission?: Yes (4) Acute and chronic respiratory failure with hypoxia Is this a current diagnosis for this admission?: Yes (5) Hypertension Is this a current diagnosis for this admission?: Yes (6) CKD (chronic kidney disease) stage 4, GFR 15-29 ml/min Is this a current diagnosis for this admission?: Yes (7) Anemia Is this a current diagnosis for this admission?: Yes (8) Thrombocytopenia Is this a current diagnosis for this admission?: Yes (9) HLD (hyperlipidemia) Is this a current diagnosis for this admission?: Yes (10) Hyperkalemia Is this a current diagnosis for this admission?: Yes (11) Tachycardia Is this a current diagnosis for this admission?: Yes (12) Diastolic heart failure Is this a current diagnosis for this admission?: Yes (13) Pulmonary hypertension Is this a current diagnosis for this admission?: Yes (14) Bacteremia Is this a current diagnosis for this admission?: Yes - Additional Information Resuscitation Status: Full Code Discharge Diet: As Tolerated, Cardiac Discharge Activity: Activity As Tolerated, Balance Activity w/Rest, Weigh Daily Home Medications: Albuterol Sulfate [Proair HFA] 2 puff IH BID 08/12/17 Amlodipine Besylate [Norvasc 10 mg Tablet] 10 mg PO DAILY 08/12/17 Aspirin [Adult Low Dose Aspirin EC] 81 mg PO DAILY 08/12/17 Atorvastatin Calcium [Lipitor 40 mg Tablet] 40 mg PO DAILY 08/12/17 Clopidogrel Bisulfate [Plavix 75 mg Tablet] 75 mg PO DAILY 08/12/17 Cyanocobalamin (Vitamin B-12) [Vitamin B-12 1000 mcg Tablet] 1,000 mcg PO DAILY 08/12/17 Ferrous Sulfate [Feosol 325 mg Tablet] 325 mg PO DAILY 08/12/17 Finasteride [Proscar 5 mg Tablet] 5 mg PO DAILY 08/12/17 Furosemide [Lasix 20 mg Tablet] 20 mg PO DAILY 08/12/17 Lisinopril [Zestril] 20 mg PO DAILY 08/12/17 Nitroglycerin [Nitrostat] 0.4 mg SL Q5MP PRN 08/12/17 [place]-3 Fatty Acids/Fish Oil [Fish Oil 1,000 mg Capsule] 1 cap PO DAILY Ranitidine HCl [Zantac 150 mg Tablet] 150 mg PO BID 08/12/17 Tamsulosin HCl [Flomax 0.4 mg Cap.sr] 0.4 mg PO DAILY 08/12/17 Metoprolol Tartrate [Lopressor 50 mg Tablet] 25 mg PO BID #0 08/18/17 Ranolazine [Ranexa 500 mg Tab.sr] 500 mg PO Q12 tab.sr.12h 08/18/17 History of Present Illness History of Present Illness: GILBERTO LEUNG is a 76 year old male with a history of COPD, chronic hypoxic respiratory failure, coronary artery disease status post 5 stents, hypertension and pacemaker placement presenting with a complaint of chest pain which woke him up this morning. Patient states that it is in the middle of his chest and wont go away. Patient states moving makes it worse and staying still makes it better. Patient states that he has some lightheadedness while getting up. Patient also reports being short of breath however patient is on 4 liters of oxygen. Patient states that this chest pain is different from the chest pain he had during his heart attack. Patient would like something for the the pain. Patient states that he had pneumonia 2 weeks ago and was treated for it. He did have his flu and pneumovax. Patient denies any cough, fever but does state he has some chills. In the ED patient was started on cefepime and levaquin for a left-sided pneumonia. He was also noted to be hypoxic into the 70s with minimal activity. Patient was given aspirin and Nitropaste for his chest pain however his troponin is negative. Hospitalist was called to admit patient for left-sided pneumonia and acute on chronic hypoxic respiratory failure. Original H&P dictated by myself Dr. Carolyn Anaya. Please refer to H&P for complete details. Hospital Course Hospital Course: Patient is a 76-year-old male with a history of coronary artery disease status post stents, COPD with chronic hypoxic respiratory failure on 4 liters supplemental oxygen. Patient also has abnormal CT scan which is being followed by his grand scribe Dr. Samuel Guardado. Patient noted to have nodules which the grand scribe would like biopsied at some point. Patient supposed to have a repeat CT scan done on August 22, 2017. Patient was admitted with multifocal left-sided pneumonia for which she was treated with cefepime and Zyvox. Patient was also started on steroids for COPD exacerbation. This was weaned during his hospitalization. Patient grand scribe was contacted and he recommended moxifloxacin on discharge to complete a total of 10 days of antibiotics. Patient did have some chest pain on presentation however this seemed to be pleuritic in nature as he only felt it would deep inspiration. Steroids did appear to help with this. Acute coronary syndrome was ruled out however patient will continue to have intermittent chest pain. Patient was started on Ranexa 500 mg p.o. twice daily. He was continued on his aspirin, beta-boyd and statin. Patient had a cardiac echo completed which showed a normal EF but he does have grade 2/ 4 mild to moderate diastolic dysfunction. Patient was noted to have some crackles on lung bases during examination. Patient was continued on his Lasix. Patient lisinopril was held due to his acute on chronic renal failure. Patient was also noted to have moderate pulmonary hypertension on cardiac echo with RVSP of 50-60 mmHg. As noted patient does follow-up with pulmonology as outpatient. Patient blood pressures were low in the beginning of his admission however became elevated during his hospitalization. Patient resume was resumed on all his home medications to discharge which controlled his blood pressure. Patient with CKD stage 4. Patient had acute on chronic kidney disease disease stage IV however still had good urinary output. Patient does have anemia chronic kidney disease for which she is on ferrous sulfate. Patient had mild hyperkalemia most likely due to his acute on chronic renal failure however this did improve with Kayexalate. With chronic thrombocytopenia however does not show any signs of bleeding. Patient was continued on his aspirin and Plavix due to his extensive cardiac history. Patient was on SCDs for DVT prophylaxis. For his hyperlipidemia he was continued on his statin. Did develop some tachycardia with the use of the nebulizers. These were discontinued and his tachycardia did resolve. Patient did have a positive blood culture (staphylococcus capitis) which is a probable contaminant. Repeat blood cultures were negative. Patient shows significant improvement during the hospitalization. It is stable and ready to go home at this time. Physical Exam Vital Signs: Temp Pulse Resp BP Pulse Ox 97.9 F 68 17 106/64 97 08/18/17 12:48 08/18/17 12:48 08/18/17 12:48 08/18/17 12:48 08/18/17 12:48 Intake & Output 08/18/17 08/19/17 08/20/17 06:59 06:59 06:59 Intake Total 1170 540 Balance 1170 540 Weight 90.4 kg General appearance: PRESENT: no acute distress, well-developed, well-nourished Head exam: PRESENT: atraumatic, normocephalic Eye exam: ABSENT: scleral icterus Mouth exam: PRESENT: moist Neck exam: ABSENT: carotid bruit, JVD, lymphadenopathy, thyromegaly Respiratory exam: PRESENT: clear to auscultation jenni. ABSENT: rales, rhonchi, wheezes Cardiovascular exam: PRESENT: RRR. ABSENT: diastolic murmur, rubs, systolic murmur Pulses: PRESENT: normal dorsalis pedis pul Vascular exam: PRESENT: normal capillary refill GI/Abdominal exam: PRESENT: normal bowel sounds, soft. ABSENT: distended, guarding, mass, organolmegaly, rebound, tenderness Rectal exam: PRESENT: deferred Extremities exam: PRESENT: full ROM. ABSENT: calf tenderness, clubbing, pedal edema Neurological exam: PRESENT: alert, awake, oriented to person, oriented to place , oriented to time, oriented to situation, CN II-XII grossly intact. ABSENT: motor sensory deficit Psychiatric exam: PRESENT: appropriate affect, normal mood. ABSENT: homicidal ideation, suicidal ideation Skin exam: PRESENT: dry, intact, warm. ABSENT: cyanosis, rash Results Laboratory Results: 08/13/17 13:38 08/15/17 04:00 08/14/17 12:12 Blood Blood Culture - Final NO GROWTH IN 5 DAYS 08/14/17 12:29 Blood Blood Culture - Final NO GROWTH IN 5 DAYS 08/11/17 08/12/17 08/12/17 18:31 00:39 21:05 Creatine Kinase 32 L CK-MB (CK-2) Troponin I 0.013 0.026 08/12/17 21:05 Creatine Kinase CK-MB (CK-2) 2.04 Troponin I 0.047 Impressions: Chest X-Ray 08/11/17 15:26 IMPRESSION: MULTIFOCAL LEFT-SIDED AIRSPACE DISEASE PRESUMABLY REPRESENTS PNEUMONIA IN THE APPROPRIATE CLINICAL SETTING. RECOMMEND FOLLOWUP RADIOGRAPHS IN 4 TO 6 WEEKS TO ENSURE RESOLUTION. Acute Abdomen Series 08/12/17 00:00 IMPRESSION: No acute abdominal disease. Worsening chest radiograph with extensive bilateral airspace disease. Qualifiers PATEINT BEING DISCHARGED WITH ANY OF THE FOLLOWING DIAGNOSIS?: No Plan Time Spent: Greater than 30 Minutes - Patient is being discharged home on moxifloxacin which was called into his pharmacy and [place] [facility]. Patient also discharged on Ranexa and Solu-Medrol Dosepaks were already picked up by his family. Patient reminded that he should follow-up with his grand scribe scheduled on August 22, 2017 at 2:30 PM.
== END 2017-08-18 14:27 | disposition home or self-care (01) | DRG 193 ==
LOC: ER 15:20 → OBSVTOIN 17:46 → EH 17:46 → 4N 20:57
PROVIDERS: ADMIT Internal Medicine; ATTEND Internal Medicine
PROC: 3E0F73Z Introduction of Anti-inflammatory into Respiratory Tract, Via Natural or Artificial Opening (ICD-10-PCS; principal; 2017-08-11)
DX: J18.9 Pneumonia, unspecified organism (principal); J96.21 Acute and chronic respiratory failure with hypoxia; J44.0 Chronic obstructive pulmonary disease with (acute) lower respiratory infection; N18.4 Chronic kidney disease, stage 4 (severe); I13.0 Hypertensive heart and chronic kidney disease with heart failure and stage 1 through stage 4 chronic kidney disease, or unspecified chronic kidney disease; I50.32 Chronic diastolic (congestive) heart failure; R78.81 Bacteremia; J44.1 Chronic obstructive pulmonary disease with (acute) exacerbation; N17.9 Acute kidney failure, unspecified; D63.1 Anemia in chronic kidney disease; D69.6 Thrombocytopenia, unspecified; E78.5 Hyperlipidemia, unspecified; E87.5 Hyperkalemia; I27.20 Pulmonary hypertension, unspecified; F10.20 Alcohol dependence, uncomplicated; I25.10 Atherosclerotic heart disease of native coronary artery without angina pectoris; Z79.899 Other long term (current) drug therapy; Z95.5 Presence of coronary angioplasty implant and graft; Z95.0 Presence of cardiac pacemaker; I25.2 Old myocardial infarction; Z87.891 Personal history of nicotine dependence; Z99.81 Dependence on supplemental oxygen; Z82.49 Family history of ischemic heart disease and other diseases of the circulatory system; Z80.0 Family history of malignant neoplasm of digestive organs
CPT/HCPCS: 36415; 36600; 71010; 74022; 80048; 80053; 80061; 82550; 82553; 82607; 82728; 82746; 82803; 83540; 83550; 83690; 83735; 84439; 84443; 84466; 84481; 84484; 85025; 85045; 87040; 87077; 87186; 93005; 93010; 93306; 94640; 94667; 94668; 94799; 96365; 96368; 99285; J0360; J0692; J1940; J1956; J2020; J2270; J2920; J2930; J3490; J7030; J7512; J7620

== ENCOUNTER 2017-09-02 11:04 | Emergency (ER) | payer MEDICARE, OTHER ==
--- NOTE | 2017-09-02 12:29 | ER Document Report ---
ED Medical Screen (RME) - General Chief Complaint: Chest Pain Stated Complaint: CHEST PAIN Time Seen by Provider: 09/02/17 11:53 Notes: Patient reports several days of substernal chest pain. He states it does not feel like his previous cardiac pain. He also states it does not feel like his previous pneumonia pain. He did spend a week in the hospital last month he states for pneumonia. He states he has had no recent cough cold or congestion. Patient states he does feel more short of breath. He states he has had some swelling of both legs with the left being greater. He has no history of blood clots. He has had multiple MIs and stents. TRAVEL OUTSIDE OF THE [place] IN LAST 30 DAYS: No - Related Data Allergies/Adverse Reactions: No Known Allergies Allergy (Verified 08/11/17 18:20) Past Medical History - Social History Chew tobacco use (# tins/day): No Frequency of alcohol use: None Drug Abuse: None - Past Medical History Cardiac Medical History: Reports: Hx Coronary Artery Disease, Hx Heart Attack, Hx Hypertension Pulmonary Medical History: Reports: Hx COPD, Hx Respiratory Failure Renal/ Medical History: Denies: Hx Peritoneal Dialysis Past Surgical History: Reports: Hx Coronary Stent, Hx Pacemaker - Immunizations History of Influenza Vaccine for 05/2017 - 10/2017 Season: Yes Influenza Administration Date for 05/2017 - 10/2017 Season: 06/05/17 Physical Exam - Vital signs Vitals: Temp Pulse Resp BP Pulse Ox 98.2 F 66 14 112/45 L 97 09/02/17 11:38 09/02/17 11:38 09/02/17 11:38 09/02/17 11:38 09/02/17 11:38 Course - Vital Signs Vital signs: Temp Pulse Resp BP Pulse Ox 98.2 F 66 14 112/45 L 97 09/02/17 11:38 09/02/17 11:38 09/02/17 11:38 09/02/17 11:38 09/02/17 11:38
[2017-09-02 12:35] LABS: ABSOLUTE LYMPHOCYTES (AUTO) 0.7 10^3/uL (0.5-4.7); ABSOLUTE MONOCYTES (AUTO) 0.4 10^3/uL (0.1-1.4); ABSOLUTE NEUT (AUTO) 4.6 10^3/uL (1.7-8.2); BASOPHILS % (AUTO) 0.5 % (0-2); EOSINOPHILS % (AUTO) 0.2 % (0-6); HEMATOCRIT 27.9 % (37.9-51.0); LYMPHOCYTES % (AUTO) 11.8 % (13-45); MEAN CORPUSCULAR HEMOGLOBIN 28.1 pg (27.0-33.4); MEAN CORPUSCULAR HGB CONC 32.2 g/dL (32.0-36.0); MEAN CORPUSCULAR VOLUME 87 fl (80-97); MONOCYTES % (AUTO) 7.2 % (3-13); PLATELET COUNT 123 10^3/uL (150-450); RED CELL DISTRIBUTION WIDTH 18.9 % (11.5-14.0); SEGMENTED NEUTROPHILS % (AUTO) 80.3 % (42-78); TOTAL CELLS COUNTED % (AUTO) 100 %; WHITE BLOOD COUNT 5.7 10^3/uL (4.0-10.5)
--- NOTE | 2017-09-02 12:52 | RADIOLOGY REPORT (SQ) ---
EXAM DESCRIPTION: CHEST PA/LAT COMPLETED DATE/TIME: 09/02/2017 12:44 pm REASON FOR STUDY: cp COMPARISON: 08/11/2017 EXAM PARAMETERS: NUMBER OF VIEWS: two views TECHNIQUE: Digital Frontal and Lateral radiographic views of the chest acquired. RADIATION DOSE: NA LIMITATIONS: none FINDINGS: LUNGS AND PLEURA: Improving left-sided airspace disease. Lungs and pleural spaces otherwi se clear. MEDIASTINUM AND HILAR STRUCTURES: No masses or contour abnormalities. HEART AND VASCULAR STRUCTURES: Heart stable in size. No evidence for failure. BONES: No acute findings. HARDWARE: Stable. OTHER: No other significant finding. IMPRESSION: IMPROVING LEFT-SIDED AIRSPACE DISEASE WITHOUT NEW ABNORMALITY IDENTIFIED. TECHNICAL DOCUMENTATION: JOB ID: [id number] [employer]- All Rights Reserved
[2017-09-02 13:01] LABS: ALANINE AMINOTRANSFERASE 30 U/L (21-72); ALBUMIN 3.8 g/dL (3.5-5.0); ALKALINE PHOSPHATASE 98 U/L (38-126); ANION GAP 12 (5-19); ASPARTATE AMINO TRANSFERASE 14 U/L (17-59); BILIRUBIN,DIRECT 0.3 mg/dL (0.0-0.4); BLOOD UREA NITROGEN 50 mg/dL (7-20); CALCIUM 9.9 mg/dL (8.4-10.2); CARBON DIOXIDE 25 mmol/L (22-30); CHLORIDE 99 mmol/L (98-107); GLUCOSE 131 mg/dL (75-110); POTASSIUM 5.2 mmol/L (3.6-5.0); SODIUM 135.8 mmol/L (137-145)
--- NOTE | 2017-09-02 13:30 | ER Document Report ---
ED Cardiac - General Chief Complaint: Chest Pain Stated Complaint: CHEST PAIN Time Seen by Provider: 09/02/17 11:53 Mode of Arrival: Ambulatory Information source: Patient TRAVEL OUTSIDE OF THE [place] IN LAST 30 DAYS: No - HPI Notes: Patient is a 77-year-old male with a history of coronary artery disease status post stents, COPD with chronic hypoxic respiratory failure on 4 liters supplemental oxygen, CKD stage 4, history of abnormal CT scan which is being followed by his flight radio operator Dr. Samuel Guardado. He presents today with midsternal chest pain radiating to both sides equally but not his back. It is sharp in nature much worse with deep inspiration. Some chronic cough but no new hemoptysis or purulent sputum. He has had some increased shortness of breath as well. Seemed to have started more significantly yesterday and appears different than his prior cardiac pain that he has had in the past as well as different than the recent chest pain he has had for which she was admitted and diagnosed with pneumonia. Patient denies fever abdominal pain vomiting diarrhea. Denies increased leg swelling. Slight worsening with movement but not really positional. - Related Data Allergies/Adverse Reactions: No Known Allergies Allergy (Verified 08/11/17 18:20) Past Medical History - Social History Smoking Status: Former Smoker Chew tobacco use (# tins/day): No Frequency of alcohol use: None Drug Abuse: None Family History: CAD - Heart attack in mother, Malignancy - Liver cancer in father Patient has suicidal ideation: No Patient has homicidal ideation: No - Past Medical History Cardiac Medical History: Reports: Hx Coronary Artery Disease, Hx Heart Attack, Hx Hypertension Pulmonary Medical History: Reports: Hx COPD, Hx Respiratory Failure Renal/ Medical History: Denies: Hx Peritoneal Dialysis Past Surgical History: Reports: Hx Coronary Stent, Hx Pacemaker Review of Systems - Review of Systems -: Yes All other systems reviewed and negative Physical Exam - Vital signs Vitals: Temp Pulse Resp BP Pulse Ox 98.2 F 66 14 112/45 L 97 09/02/17 11:38 09/02/17 11:38 09/02/17 11:38 09/02/17 11:38 09/02/17 11:38 Interpretation: Normal - Notes Notes: Physical Exam: GENERAL: VS as per nursing doc. Well-appearing, well-nourished and in no acute distress. HEAD: Atraumatic, normocephalic. EYES: Pupils equal round and reactive to light, extraocular movements intact, sclera anicteric, no conjunctival injection or discharge. ENT: Nares patent, oropharynx clear without exudates. Moist mucous membranes. NECK: Normal range of motion, supple without lymphadenopathy. No JVD. No Carotid Bruits. LUNGS: Breath sounds coarse bilaterally, very mild wheezing noted. HEART: Normal S1S2. Regular rate and rhythm with diffuse systolic murmur noted. Equal peripheral pulses. ABDOMEN: Soft, non-tender. EXTREMITIES: Normal range of motion. No calf tenderness. Negative Homans. Trace pitting edema. NEUROLOGICAL: Cranial nerves grossly intact. Normal speech. Normal sensory and motor exams. No gross cerebellar abnormalities. PSYCH: Normal mood, normal affect. SKIN: Warm, dry, no cyanosis, no splinter hemorrhages. Cap refill < 2 sec. Course - Re-evaluation Re-evalutation: 09/02/17 16:06 Patient showed me a report on his phone of his CT scan done August 23 in [facility] which she had done for follow-up of pulmonary nodules and supposed to have every 6 months. That showed clearing on the left but some areas slightly increased on the right and lingular area. He had not been put on antibiotics and as that apparently had appeared somewhat worse than prior, we will place him on Zithromax. He prefers discharge home and would like something for discomfort which seems appropriate. He is well aware of warning signs to watch for. 09/02/17 16:08 His chronic anemia as well as kidney function appears stable. Discussed with him recheck of the minimally elevated potassium. - Vital Signs Vital signs: Temp Pulse Resp BP Pulse Ox 97.7 F 66 19 112/45 L 98 09/02/17 13:27 09/02/17 11:38 09/02/17 13:27 09/02/17 11:38 09/02/17 13:27 - Laboratory Result Diagrams: 09/02/17 12:20 09/02/17 12:20 Laboratory results interpreted by me: 09/02/17 09/02/17 09/02/17 12:20 12:20 12:20 RBC 3.20 L Hgb 9.0 L Hct 27.9 L RDW 18.9 H Plt Count 123 L Seg Neutrophils % 80.3 H Lymphocytes % 11.8 L D-Dimer 0.53 H Sodium 135.8 L Potassium 5.2 H BUN 50 H Creatinine 2.18 H Est GFR ( Amer) 36 L Est GFR (Non-Af Amer) 29 L Glucose 131 H AST 14 L - EKG Interpretation by Me Rate: Normal - Appears to have pacer spikes noted, rate 75, no clear evidence of ischemia. J-point elevation noted. Discharge - Discharge Clinical Impression: Chest pain, COPD (chronic obstructive pulmonary disease), Chronic anemia, Chronic kidney disease Condition: Good Disposition: HOME, SELF-CARE Instructions: Oral Narcotic Medication ([facility]) Additional Instructions: Contact your physician for follow-up tomorrow. Finish the antibiotics as directed starting tomorrow. Please return if you are worsening or for other concern. Prescriptions: Hydrocodone/Acetaminophen [[place] 5-325 mg Tablet] 1 tab PO Q4HP PRN #14 tablet PRN Reason: For Pain Azithromycin [Zithromax 250 mg Tablet] 250 mg PO DAILY #4 tablet
--- NOTE | 2017-09-02 14:12 | RADIOLOGY REPORT (SQ) ---
EXAM DESCRIPTION: CT CHEST WITHOUT COMPLETED DATE/TIME: 09/02/2017 2:00 pm REASON FOR STUDY: Chest pain, dyspnea COMPARISON: None. TECHNIQUE: CT scan performed of the chest without intravenous contrast. Images reviewed with lung, soft tissue and bone windows. Reconstructed coronal and sagittal MPR images reviewed. All images st ored on PACS. All CT scanners at this facility use dose modulation, iterative reconstruction, and/or weight based d osing when appropriate to reduce radiation dose to as low as reasonably achievable (ALARA). [facility]: Dose Right [facility]: CareDose [facility]: Dose Right [facility]: Teradose 4D [facility]: [employer] RADIATION DOSE: CT Rad equipment meets quality standard of care and radiation dose reduction techniq ues were employed. CTDIvol: 8.2 mGy. DLP: 341 mGy-cm. mGy. LIMITATIONS: No technical limitations. FINDINGS: LUNGS AND PLEURA: Patchy airspace opacities involving the left upper lobe and left greater than right lower lobes likely represents residual change from previous described resolving pneumonia . There is an 8 x 8 x 13 mm (AP by transverse by craniocaudal) spiculated nodule within the right up per lobe. Lungs and pleural spaces otherwise clear. . HILAR AND MEDIASTINAL STRUCTURES: No identified masses or abnormal nodes. No obvious aneurysm. HEART AND VASCULAR STRUCTURES: Atherosclerotic calcifications including coronary artery calcification s. No aneurysm. Small pericardial effusion. UPPER ABDOMEN: No significant findings. Limited exam. THYROID AND OTHER SOFT TISSUES: No masses. No adenopathy. BONES: No significant finding. HARDWARE: Cardiac pacer. Probable stent within the LAD. OTHER: No other significant findings. IMPRESSION: PATCHY AIRSPACE OPACITIES INVOLVING THE LEFT UPPER LOBE AND LEFT GREATER THAN RIGHT LOWE R LOBES PRESUMABLY REPRESENTS RESIDUAL CHANGE FROM PREVIOUSLY DESCRIBED RESOLVING PNEUMONIA. 13 MM SPICULATED NODULE RIGHT UPPER LOBE MAY BE INFECTIOUS, INFLAMMATORY, OR NEOPLASTIC. RECOMMEND 6 [address]EEK FOLLOW-UP CT CHEST IN PERSISTENT CONSIDER BIOPSY. ADDITIONAL CHRONIC CHANGES ABOVE. TECHNICAL DOCUMENTATION: JOB ID: [id number] Quality ID # [id number]: Final reports with documentation of one or more dose reduction techniques (e.g., Au tomated exposure control, adjustment of the mA and/or kV according to patient size, use of iterative reconstruction technique) 2010 [employer]- All Rights Reserved
[2017-09-02] MEDS ORDERED: MORPHINE SULFATE 10 MG/ML INJ IV ONE (15:21)
--- NOTE | 2017-09-02 15:37 | XCELERA REPORT ---
[address] [address] Lower Extremity Venous Evaluation Name: GILBERTO LEUNG Age: 77 yrs Gender: Male : 1940 Patient Status: Emergency Patient Location: ER Study Date: 09/02/2017 01:39 PM Procedure: Color flow and duplex imaging of the veins of the left lower extremity as well as the right Common Femoral vein. Reason For Study: left lle/sob leg swelling Ordering Physician: TRICIA PURVIS Performed By: Elizabeth Smith Right Sided Venous Evaluation The right common femoral vein is fully compressible. Spontaneous and phasic flow is present in the right common femoral vein. Left Sided Venous Evaluation Normal vessel filling wall to wall, compression and augmentation as well as Colour flow down to the infrageniculate veins. Interpretation Summary No duplex evidence of DVT or obstruction in the left lower extremity nor in the right Common Femoral vein. : TRICIA PURVIS > Gonzalez Johnson
[2017-09-02] MEDS ORDERED: AZITHROMYCIN 250 MG TABLET PO ONE (16:09)
[2017-09-02 17:16] VITALS: BP 92/56
--- NOTE | 2017-09-02 17:19 | EKG REPORT ---
SEVERITY:- ABNORMAL ECG - A-V DUAL-PACED RHYTHM WITH SOME INHIBITION : Confirmed by: Edgar Tapia 02-Sep-2017 17:18:22
== END 2017-09-02 17:36 | disposition home or self-care (01) ==
LOC: ER 11:04
DX: R07.9 Chest pain, unspecified (principal); I12.9 Hypertensive chronic kidney disease with stage 1 through stage 4 chronic kidney disease, or unspecified chronic kidney disease; N18.4 Chronic kidney disease, stage 4 (severe); D64.9 Anemia, unspecified; J44.9 Chronic obstructive pulmonary disease, unspecified; J96.11 Chronic respiratory failure with hypoxia; Z99.81 Dependence on supplemental oxygen; I25.2 Old myocardial infarction; I25.10 Atherosclerotic heart disease of native coronary artery without angina pectoris; R05 Cough; Z95.5 Presence of coronary angioplasty implant and graft; Z87.01 Personal history of pneumonia (recurrent); Z87.891 Personal history of nicotine dependence; Z82.49 Family history of ischemic heart disease and other diseases of the circulatory system
CPT/HCPCS: 93005; 99285; 96374; 36415; 85025; 80053; 84484; 85379; 93971 ×2; 71046; 71250; 93010; A9270; J2270

== ENCOUNTER → 2017-10-15 | Outpatient (CLI) | payer MEDICARE, OTHER ==
--- NOTE | 2017-10-15 14:49 | RADIOLOGY REPORT (SQ) ---
EXAM DESCRIPTION: U/S RETROPERITON (RENAL/AORTA) COMPLETED DATE/TIME: 10/15/2017 11:04 am REASON FOR STUDY: N18.3 CHRONIC KIDNEY DISEASE, STAGE 3 (MODERATE) I50.9HEART FAILURE, UNSPEC N18.3 CHRONIC KIDNEY DISEASE, STAGE 3 (MODERATE) I50.9 HEART FAILURE, UNSPECIFIED COMPARISON: CT chest 09/02/2017 TECHNIQUE: Dynamic and static grayscale images acquired of the kidneys and bladder and recorded on P ACS. Additional selected color Doppler and spectral images recorded. LIMITATIONS: None. FINDINGS: The right kidney measures 6.3 cm in length, with diffuse cortical thinning and increased c ortical echogenicity. No hydronephrosis, cysts, or masses. Left kidney is 13 cm in length. Normal cortical thickness and echogenicity. No cysts, stones, or ma sses. Urinary bladder is decompressed. No bladder calculi. IMPRESSION: Asymmetric right-sided renal atrophy. Normal appearing left kidney. Limited view of the bladder unremarkable. TECHNICAL DOCUMENTATION: JOB ID: [id number] [employer]- All Rights Reserved Reading location - IP/workstation name: [email or web address]
== END ==
LOC: RAD 11:01
PROVIDERS: ATTEND Internal Medicine Nephrology
DX: I12.9 Hypertensive chronic kidney disease with stage 1 through stage 4 chronic kidney disease, or unspecified chronic kidney disease (principal); N18.3 Chronic kidney disease, stage 3 (moderate); I50.9 Heart failure, unspecified
CPT/HCPCS: 76770

== ENCOUNTER → 2017-10-20 | Outpatient (CLI) | payer MEDICARE, OTHER ==
--- NOTE | 2017-10-29 13:53 | RADIOLOGY REPORT (SQ) ---
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 RADIONUCLIDE AND DOSE: 10.0 mCi F18 FDG The route of agent administration: Intravenous FASTING BLOOD SUGAR: 86 mg/dl CONTRAST TYPE AND DOSE: No CT contrast given. TECHNIQUE: Blood glucose level was verified. Above dose of FDG was injected intravenously. 2-D seg mented attenuation correction images were obtained through the entire body. Noncontrast CT images we re obtained for attenuation correction and fusion with emission images. CT images were performed wit hout oral or intravenous contrast and are not sensitive for parenchymal lesions. A series of overlap ping emission PET images were obtained. Images reviewed and manipulated at independent work station by the radiologist. Images stored on PACS. LIMITATIONS: None. FINDINGS: HEAD AND NECK: No areas of abnormal metabolic activity in the soft tissues of the head and neck. CHEST: Emphysematous changes. Stable spiculated lesion in the right upper lobe, measuring 7 mm. Kourtney n SUV value 1.49. Prior value 1.9. Hazy airspace disease in the lingula and left lower lobe. Impro faith aeration compared to the prior study. On the prior study there was significant nodularity partic ularly in the left lower lobe and this has resolved. ABDOMEN AND PELVIS: No areas of abnormal metabolic activity in the abdomen or pelvis. Expected physi ologic activity is present in the genitourinary system and bowel. LOWER EXTREMITIES: No areas of abnormal metabolic activity in the soft tissues of the lower extremiti es. BONES: No abnormal metabolic activity in the visualized skeleton. ADDITIONAL CT FINDINGS: Stable bilateral adrenal nodules, not hypermetabolic. Chronic atrophic appea luiza of the right kidney. Hiatal hernia. OTHER: No other significant findings. IMPRESSION: 1. STABLE SPICULATED LESION IN THE RIGHT UPPER LOBE WITH MEAN SUV VALUE CURRENTLY 1.49. PRIOR VALUE 1.9. THIS PROBABLY REPRESENTS AN AREA OF SCARRING. THERE ARE GENERAL EMPHYSEMATOUS CHANGES THROUGHO UT THE LUNGS WITH HAZY AIRSPACE DISEASE IN THE LEFT LUNG. NO ABNORMAL ACTIVITY. APPEARANCE ON CT MCCLENDON S IMPROVED SIGNIFICANTLY SINCE THE PRIOR STUDY. ON THE PRIOR STUDY THERE WAS SIGNIFICANT NODULAR COM PONENT IN THE LEFT LOWER LOBE WHICH HAS SINCE CLEARED. 2. NO OTHER AREAS OF ABNORMAL METABOLIC ACTIVITY. PREVIOUSLY SEEN FOCAL AREA OF INCREASED ACTIVITY I N THE DISTAL LEFT CLAVICLE NOT PRESENT ON THE CURRENT STUDY. 3. OTHER INCIDENTAL FINDINGS ON NONCONTRAST CT INCLUDING BILATERAL ADRENAL NODULES, STABLE, PRESUMABL Y ADENOMAS. ATROPHIC RIGHT KIDNEY. TECHNICAL DOCUMENTATION: JOB ID: [id number] [employer]- All Rights Reserved Reading location - IP/workstation name: [email or web address]
== END ==
LOC: RAD 14:34
PROVIDERS: ATTEND Internal Medicine
DX: C90.00 Multiple myeloma not having achieved remission (principal); E27.9 Disorder of adrenal gland, unspecified; K44.9 Diaphragmatic hernia without obstruction or gangrene
CPT/HCPCS: 78816; A9552

== ENCOUNTER → 2017-12-03 | Outpatient (CLI) | payer MEDICARE, OTHER ==
[2017-12-03 14:04] LABS: HEMATOCRIT 35.4 % (37.9-51.0); HEMOGLOBIN 11.7 g/dL (13.5-17.0); MEAN CORPUSCULAR HEMOGLOBIN 29.1 pg (27.0-33.4); MEAN CORPUSCULAR VOLUME 88 fl (80-97); PLATELET COUNT 141 10^3/uL (150-450); RED BLOOD COUNT 4.01 10^6/uL (4.35-5.55); WHITE BLOOD COUNT 4.7 10^3/uL (4.0-10.5)
[2017-12-03 14:20] LABS: ALANINE AMINOTRANSFERASE 29 U/L (21-72); ALKALINE PHOSPHATASE 127 U/L (38-126); ANION GAP 11 (5-19); ASPARTATE AMINO TRANSFERASE 22 U/L (17-59); BILIRUBIN,DIRECT 0.4 mg/dL (0.0-0.4); BILIRUBIN,TOTAL 1.2 mg/dL (0.2-1.3); BLOOD UREA NITROGEN 39 mg/dL (7-20); CALCIUM 10.2 mg/dL (8.4-10.2); CARBON DIOXIDE 35 mmol/L (22-30); CHLORIDE 96 mmol/L (98-107); CHOLESTEROL 149.71 mg/dL (0-200); CREATINE KINASE 30 U/L (55-170); GLUCOSE 108 mg/dL (75-110); POTASSIUM 4.6 mmol/L (3.6-5.0); SODIUM 141.6 mmol/L (137-145); TOTAL PROTEIN 7.4 g/dL (6.3-8.2); TRIGLYCERIDES 121 mg/dL (<150)
[2017-12-03 14:31] LABS: DIRECT LDL 74 mg/dL (<100)
== END ==
LOC: OD 13:12
PROVIDERS: ATTEND Internal Medicine Cardiovascular Disease
DX: I25.10 Atherosclerotic heart disease of native coronary artery without angina pectoris (principal); R06.02 Shortness of breath; R00.2 Palpitations; E78.5 Hyperlipidemia, unspecified; Z79.899 Other long term (current) drug therapy; R25.2 Cramp and spasm
CPT/HCPCS: 36415; 80048; 80061; 80076; 82550; 83036; 83735; 83880; 84443; 85027

== ENCOUNTER → 2017-12-17 | Outpatient (CLI) | payer MEDICARE, OTHER ==
--- NOTE | 2017-12-17 13:49 | RADIOLOGY REPORT (SQ) ---
EXAM DESCRIPTION: U/S RETROPERITON (RENAL/AORTA) COMPLETED DATE/TIME: 12/17/2017 10:46 am REASON FOR STUDY: N18.3 CHRONIC KIDNEY DISEASE, STAGE 3 (MODERATE) N18.3 CHRONIC KIDNEY DISEASE, ST AGE 3 (MODERATE) COMPARISON: 10/15/2017 TECHNIQUE: Dynamic and static grayscale images acquired of the kidneys and bladder and recorded on P ACS. Additional selected color Doppler and spectral images recorded. LIMITATIONS: None. FINDINGS: RIGHT KIDNEY: 6.5 cm in length. Increased echogenicity is again identified in the renal cortex. Renal cortical thinning is again identified. No solid or suspicious masses. No hydronep hrosis. No calcifications. LEFT KIDNEY: 12.5 cm in length. Normal echogenicity. No solid or suspicious masses. No hydrone phrosis. No calcifications. BLADDER: No masses. OTHER FINDINGS: No other significant finding. IMPRESSION: No significant interval changes compared to the previous study. Findings consistent wit h renal atrophy on the right are again identified. No significant left renal abnormalities were iden tified. Other findings as noted above TECHNICAL DOCUMENTATION: JOB ID: [id number] [employer]- All Rights Reserved Reading location - IP/workstation name: [email or web address]
== END ==
LOC: RAD 08:17
PROVIDERS: ATTEND Internal Medicine Nephrology
DX: N18.3 Chronic kidney disease, stage 3 (moderate) (principal)
CPT/HCPCS: 76770

== ENCOUNTER 2017-12-19 15:48 | Emergency (ER) | payer MEDICARE, OTHER ==
--- NOTE | 2017-12-19 16:38 | ER Document Report ---
ED Respiratory Problem - General Chief Complaint: Abnormal Lab Results Stated Complaint: DIFFICULTY BREATHING Time Seen by Provider: 12/19/17 16:35 Notes: Patient is a 77-year-old male with a history of CAD s/p stents and AICD, COPD with chronic hypoxic respiratory failure on 4 liters supplemental oxygen, CKD stage 4, presents after he had routine blood work done earlier today by his film maker, Dr. Ragsdale, and was told that he had elevated potassium and worsening kidney function. He denies any complaints at this time, other than his chronic shortness of breath that is worse when he walks. His garment alteration examiner is Dr. Yeager. Pt denies fevers, palpitations, chest pain, SOB at rest or decreased urination. TRAVEL OUTSIDE OF THE [place] IN LAST 30 DAYS: No - Related Data Allergies/Adverse Reactions: No Known Allergies Allergy (Verified 12/19/17 15:52) Past Medical History - General Information source: Patient - Social History Smoking Status: Unknown if Ever Smoked Family History: CAD - Heart attack in mother, Malignancy - Liver cancer in father - Past Medical History Cardiac Medical History: Reports: Hx Coronary Artery Disease, Hx Heart Attack, Hx Hypertension Pulmonary Medical History: Reports: Hx COPD, Hx Respiratory Failure Renal/ Medical History: Denies: Hx Peritoneal Dialysis Past Surgical History: Reports: Hx Coronary Stent, Hx Pacemaker Review of Systems - Review of Systems Notes: REVIEW OF SYSTEMS: CONSTITUTIONAL: -fevers, -chills EENT: -eye pain, -difficulty swallowing, -nasal congestion CARDIOVASCULAR: -chest pain, -syncope. RESPIRATORY: -cough, -SOB GASTROINTESTINAL: -abdominal pain, -nausea, -vomiting, -diarrhea GENITOURINARY: -dysuria, -hematuria MUSCULOSKELETAL: -back pain, -neck pain SKIN: -rash or skin lesions. HEMATOLOGIC: -easy bruising or bleeding. LYMPHATIC: -swollen, enlarged glands. NEUROLOGICAL: -altered mental status or loss of consciousness, -headache, - neurologic symptoms PSYCHIATRIC: -anxiety, -depression. ALL OTHER SYSTEMS REVIEWED AND NEGATIVE. Physical Exam - Vital signs Vitals: Temp Pulse Resp BP Pulse Ox 97.8 F 96 20 139/57 H 92 12/19/17 16:13 12/19/17 16:13 12/19/17 16:13 12/19/17 16:13 12/19/17 16:13 - Notes Notes: PHYSICAL EXAMINATION: GENERAL: Well-appearing, well-nourished and in no acute distress. HEAD: Atraumatic, normocephalic. EYES: Pupils equal round and reactive to light, extraocular movements intact, sclera anicteric, conjunctiva are normal. ENT: nares patent, oropharynx clear without exudates. Moist mucous membranes. NECK: Normal range of motion, supple without lymphadenopathy LUNGS: Breath sounds clear to auscultation bilaterally and equal. No wheezes rales or rhonchi. HEART: Regular rate and rhythm without murmurs ABDOMEN: Soft, nontender, normoactive bowel sounds. No guarding, no rebound. No masses appreciated. EXTREMITIES: Normal range of motion, no pitting or edema. No cyanosis. NEUROLOGICAL: Cranial nerves grossly intact. Normal speech, normal gait. Normal sensory and motor exams. PSYCH: Normal mood, normal affect. SKIN: Warm, Dry, normal turgor, no rashes or lesions noted. Course - Re-evaluation Re-evalutation: Patient with a repeat potassium of 5.6 today EKG shows a paced rhythm, but no large hyperkalemic changes seen. 12/19/17 18:28 Spoke to his garment alteration examiner, Dr. Yeager, and she recommends providing him with hyperkalemic medications, including Kayexalate, repeating the potassium and if he remains asymptomatic, he may go home and follow-up at his appointment this week with her. 12/19/17 23:03 Patient's repeat potassium after hyperkalemic treatment is 4.6. Provide him with a list of foods that are high in potassium and told to avoid them. He will follow-up with his garment alteration examiner. - Vital Signs Vital signs: Temp Pulse Resp BP Pulse Ox 97.8 F 96 22 H 147/72 H 99 12/19/17 16:13 12/19/17 16:13 12/19/17 20:35 12/19/17 20:35 12/19/17 20:35 - Laboratory Result Diagrams: 12/19/17 06:58 12/19/17 21:55 Laboratory results interpreted by me: 12/19/17 12/19/17 12/19/17 06:58 06:58 06:58 RBC 3.48 L Hgb 10.2 L Hct 30.7 L RDW 16.0 H Plt Count 126 L Potassium 5.6 H BUN 82 H Creatinine 2.70 H Est GFR ( Amer) 28 L Est GFR (Non-Af Amer) 23 L Glucose Creatine Kinase 30 L NT-Pro-B Natriuret Pep 2730 H 12/19/17 21:55 RBC Hgb Hct RDW Plt Count Potassium BUN 76 H Creatinine 2.30 H Est GFR ( Amer) 33 L Est GFR (Non-Af Amer) 28 L Glucose 154 H Creatine Kinase NT-Pro-B Natriuret Pep - Diagnostic Test Radiology reviewed: Image reviewed, Reports reviewed Radiology results interpreted by me: CXR: chronic lung disease without acute changes - EKG Interpretation by Me EKG shows normal: [place], Intervals, QRS Complexes, ST-T Waves Rate: Normal Rhythm: Other - Paced When compared to previous EKG there are: No significant change Discharge - Discharge Clinical Impression: Hyperkalemia Condition: Stable Disposition: HOME, SELF-CARE Additional Instructions: Try to avoid foods high in potassium and follow-up with Dr. Yaeger in 1 week for a recheck of your symptoms. Return to the ER if you have any worsening symptoms or any other concerns. HYPERKALEMIA: Avoid foods which are naturally high in potassium -- fruits (such as bananas , cantaloupe, grapes, oranges, prunes, tomatoes), fresh vegetables (potatoes, spinach, beans, peas), orange or tomato juice, tomato pasta sauce, milk, fish ( halibut, tuna, salmon, lupe) A follow-up blood test is usually performed to assure that the potassium is returning to normal. Call the physician if you suffer severe weakness, muscle twitching or cramping, palpitations (pounding or irregular heartbeat), or any other new or alarming symptoms. FOODS HIGH IN POTASSIUM: baked potato with skin 1080 mg tomato pasta sauce, 1 cup 940 sweet potato with skin 690 orange juice, 1 cup 480 bulgarian chard 480 tuna, 3 oz 480 cantaloupe, 1 cup 430 banana 420 spinach 420 yogurt, plain, nofat, 6 oz 400 milk, 1 cup 370 watermelon, 2 cups 340 tomato, 1/2 cup 210 Other foods high in potassium are most other fruits and vegetables and fish. FOLLOW-UP CARE: If you have been referred to a physician for follow-up care, call the physician s office for an appointment as you were instructed or within the next two days. If you experience worsening or a significant change in your symptoms, notify the physician immediately or return to the Emergency Department at any time for re-evaluation. Forms: Elevated Blood Pressure Referrals: BRUCE CASTILLO MD [Primary Care Provider] - Follow up as needed ROCHELLE YEAGER MD [ACTIVE STAFF] - Follow up in 1 week
[2017-12-19 17:22] LABS: ABSOLUTE BASOPHILS # (AUTO) 0.1 10^3/uL (0.0-0.2); ABSOLUTE EOSINOPHILS # (AUTO) 0.1 10^3/uL (0.0-0.6); ABSOLUTE LYMPHOCYTES (AUTO) 1.2 10^3/uL (0.5-4.7); ABSOLUTE MONOCYTES (AUTO) 0.4 10^3/uL (0.1-1.4); ABSOLUTE NEUT (AUTO) 2.8 10^3/uL (1.7-8.2); BASOPHILS % (AUTO) 1.2 % (0-2); EOSINOPHILS % (AUTO) 2.1 % (0-6); HEMATOCRIT 30.7 % (37.9-51.0); HEMOGLOBIN 10.2 g/dL (13.5-17.0); LYMPHOCYTES % (AUTO) 26.1 % (13-45); MEAN CORPUSCULAR HEMOGLOBIN 29.3 pg (27.0-33.4); MEAN CORPUSCULAR HGB CONC 33.2 g/dL (32.0-36.0); MEAN CORPUSCULAR VOLUME 88 fl (80-97); MONOCYTES % (AUTO) 8.8 % (3-13); PLATELET COUNT 126 10^3/uL (150-450); RED BLOOD COUNT 3.48 10^6/uL (4.35-5.55); SEGMENTED NEUTROPHILS % (AUTO) 61.8 % (42-78); TOTAL CELLS COUNTED % (AUTO) 100 %; WHITE BLOOD COUNT 4.5 10^3/uL (4.0-10.5)
--- NOTE | 2017-12-19 17:30 | RADIOLOGY REPORT (SQ) ---
EXAM DESCRIPTION: CHEST SINGLE VIEW COMPLETED DATE/TIME: 12/19/2017 5:15 pm REASON FOR STUDY: SOB COMPARISON: None. EXAM PARAMETERS: NUMBER OF VIEWS: One view. TECHNIQUE: Single frontal radiographic view of the chest acquired. RADIATION DOSE: NA LIMITATIONS: None. FINDINGS: LUNGS AND PLEURA: Mild chronic interstitial changes are present. There is no infiltrate o r effusion. There is no mass. MEDIASTINUM AND HILAR STRUCTURES: No masses. Contour normal. HEART AND VASCULAR STRUCTURES: Heart normal in size. Normal vasculature. BONES: No acute findings. HARDWARE: Pacemaker. Sternotomy wires. Graft markers. OTHER: No other significant finding. IMPRESSION: Chronic lung changes with no acute cardiopulmonary disease. TECHNICAL DOCUMENTATION: JOB ID: [id number] [employer]- All Rights Reserved Reading location - IP/workstation name: [email or web address]
[2017-12-19 17:39] LABS: ALANINE AMINOTRANSFERASE 23 U/L (21-72); ALBUMIN 3.8 g/dL (3.5-5.0); ALKALINE PHOSPHATASE 93 U/L (38-126); ANION GAP 12 (5-19); ASPARTATE AMINO TRANSFERASE 18 U/L (17-59); BILIRUBIN,DIRECT 0.4 mg/dL (0.0-0.4); BILIRUBIN,TOTAL 0.5 mg/dL (0.2-1.3); BLOOD UREA NITROGEN 82 mg/dL (7-20); CARBON DIOXIDE 29 mmol/L (22-30); CHLORIDE 103 mmol/L (98-107); CREATINE KINASE 30 U/L (55-170); GLUCOSE 109 mg/dL (75-110); POTASSIUM 5.6 mmol/L (3.6-5.0); SODIUM 144.1 mmol/L (137-145)
[2017-12-19 17:51] LABS: TROPONIN I 0.019 ng/mL
[2017-12-19] MEDS ORDERED: CALCIUM GLUCONATE 1000 MG/10 ML INJ IV ONE (18:27)
[2017-12-19] MEDS ORDERED: INSULIN REG, HUMAN 100 UNIT/ML 3 ML VIAL (PYX) IV ONE (18:27)
[2017-12-19] MEDS ORDERED: SODIUM BICARBONATE 8.4% INJ 50 MEQ/50 ML DISP.SYRIN IV ONE (18:27)
[2017-12-19] MEDS ORDERED: FUROSEMIDE INJ/PF 40 MG/4 ML SDV IV ONE (18:27)
[2017-12-19] MEDS ORDERED: SODIUM POLYSTYRENE SULFONATE 15 GM/60 ML PO ONE (18:27)
[2017-12-19 22:19] LABS: ALANINE AMINOTRANSFERASE 29 U/L (21-72); ALBUMIN 3.7 g/dL (3.5-5.0); ALKALINE PHOSPHATASE 113 U/L (38-126); ANION GAP 10 (5-19); ASPARTATE AMINO TRANSFERASE 17 U/L (17-59); BILIRUBIN,DIRECT 0.3 mg/dL (0.0-0.4); BILIRUBIN,TOTAL 0.4 mg/dL (0.2-1.3); BLOOD UREA NITROGEN 76 mg/dL (7-20); CALCIUM 9.9 mg/dL (8.4-10.2); CARBON DIOXIDE 30 mmol/L (22-30); CHLORIDE 101 mmol/L (98-107); GLUCOSE 154 mg/dL (75-110); SODIUM 141.4 mmol/L (137-145)
[2017-12-19 22:24] LABS: POTASSIUM 4.6 mmol/L (3.6-5.0)
[2017-12-19 23:13] VITALS: BP 118/50
--- NOTE | 2017-12-19 23:32 | EKG REPORT ---
SEVERITY:- ABNORMAL ECG - ATRIAL-SENSED VENTRICULAR-PACED COMPLEXES LEFT BUNDLE BRANCH BLOCK : Confirmed by: Edgar Tapia 19-Dec-2017 23:32:27
== END 2017-12-19 23:14 | disposition home or self-care (01) ==
LOC: ER 15:48
DX: E87.5 Hyperkalemia (principal); R06.00 Dyspnea, unspecified; I25.10 Atherosclerotic heart disease of native coronary artery without angina pectoris; J44.9 Chronic obstructive pulmonary disease, unspecified; I12.9 Hypertensive chronic kidney disease with stage 1 through stage 4 chronic kidney disease, or unspecified chronic kidney disease; N18.4 Chronic kidney disease, stage 4 (severe); Z95.810 Presence of automatic (implantable) cardiac defibrillator; Z99.81 Dependence on supplemental oxygen
CPT/HCPCS: 93005; 99284; 96374; 96375; 36415; 82550; 85025; 85610; 80048; 80053; 81001; 84484; 83880; 71045; 93010; J0610; J1940; A9270; J3490; J1815

== ENCOUNTER → 2017-12-19 | Outpatient (CLI) | payer MEDICARE, OTHER ==
[2017-12-19 12:43] LABS: APPEARANCE,URINE CLEAR; BILIRUBIN,URINE NEGATIVE (NEGATIVE); COLOR,URINE STRAW; GLUCOSE, URINE NEGATIVE (NEGATIVE); KETONES,URINE NEGATIVE (NEGATIVE); LEUKOCYTE ESTERASE,URINE NEGATIVE (NEGATIVE); NITRITE,URINE NEGATIVE (NEGATIVE); PROTEIN,URINE NEGATIVE (NEGATIVE); URINE SPECIFIC GRAVITY 1.009; UROBILINOGEN,URINE NEGATIVE mg/dL (<2.0)
[2017-12-19 12:47] LABS: PROTHROMBIN TIME 13.7 SEC (11.4-15.4)
[2017-12-19 14:44] LABS: ANION GAP 14 (5-19); BLOOD UREA NITROGEN 76 mg/dL (7-20); CALCIUM 10.3 mg/dL (8.4-10.2); CARBON DIOXIDE 27 mmol/L (22-30); CHLORIDE 103 mmol/L (98-107); GLUCOSE 109 mg/dL (75-110); POTASSIUM 5.9 mmol/L (3.6-5.0); SODIUM 143.5 mmol/L (137-145)
== END ==
LOC: OD 11:58
PROVIDERS: ATTEND Internal Medicine Cardiovascular Disease
DX: I35.0 Nonrheumatic aortic (valve) stenosis (principal); N18.3 Chronic kidney disease, stage 3 (moderate); D63.1 Anemia in chronic kidney disease; R06.02 Shortness of breath
CPT/HCPCS: 36415; 80048; 81001; 83880; 85610

== ENCOUNTER → 2017-12-23 | Outpatient (CLI) | payer MEDICARE, OTHER ==
[2017-12-23 09:41] LABS: ANION GAP 13 (5-19); BLOOD UREA NITROGEN 83 mg/dL (7-20); CALCIUM 10.4 mg/dL (8.4-10.2); CARBON DIOXIDE 29 mmol/L (22-30); CHLORIDE 101 mmol/L (98-107); GLUCOSE 113 mg/dL (75-110); POTASSIUM 5.4 mmol/L (3.6-5.0); SODIUM 143.3 mmol/L (137-145)
== END ==
LOC: OD 08:40
PROVIDERS: ATTEND Internal Medicine Cardiovascular Disease
DX: N18.3 Chronic kidney disease, stage 3 (moderate) (principal)
CPT/HCPCS: 36415; 80048

== ENCOUNTER → 2017-12-26 | Outpatient (CLI) | payer MEDICARE, OTHER ==
[2017-12-26 11:15] LABS: ABSOLUTE BASOPHILS # (AUTO) 0.1 10^3/uL (0.0-0.2); ABSOLUTE EOSINOPHILS # (AUTO) 0.1 10^3/uL (0.0-0.6); ABSOLUTE LYMPHOCYTES (AUTO) 1.4 10^3/uL (0.5-4.7); ABSOLUTE MONOCYTES (AUTO) 0.4 10^3/uL (0.1-1.4); ABSOLUTE NEUT (AUTO) 2.8 10^3/uL (1.7-8.2); BASOPHILS % (AUTO) 1.1 % (0-2); EOSINOPHILS % (AUTO) 2.6 % (0-6); HEMATOCRIT 31.6 % (37.9-51.0); HEMOGLOBIN 10.5 g/dL (13.5-17.0); LYMPHOCYTES % (AUTO) 29.9 % (13-45); MEAN CORPUSCULAR HEMOGLOBIN 29.1 pg (27.0-33.4); MEAN CORPUSCULAR HGB CONC 33.1 g/dL (32.0-36.0); MEAN CORPUSCULAR VOLUME 88 fl (80-97); MONOCYTES % (AUTO) 8.1 % (3-13); PLATELET COUNT 121 10^3/uL (150-450); RED CELL DISTRIBUTION WIDTH 15.5 % (11.5-14.0); SEGMENTED NEUTROPHILS % (AUTO) 58.3 % (42-78); TOTAL CELLS COUNTED % (AUTO) 100 %; WHITE BLOOD COUNT 4.8 10^3/uL (4.0-10.5)
[2017-12-26 11:57] LABS: ALBUMIN 3.9 g/dL (3.5-5.0); ANION GAP 14 (5-19); BLOOD UREA NITROGEN 77 mg/dL (7-20); CALCIUM 10.4 mg/dL (8.4-10.2); CARBON DIOXIDE 27 mmol/L (22-30); CHLORIDE 102 mmol/L (98-107); GLUCOSE 101 mg/dL (75-110); PHOSPHORUS 4.6 mg/dL (2.5-4.5); SODIUM 142.8 mmol/L (137-145)
[2017-12-26 12:02] LABS: POTASSIUM 6.3 mmol/L (3.6-5.0)
[2017-12-27 12:38] LABS: CREATININE URINE 30.4 mg/dL (Not Estab.); MICROALBUMIN URINE 7.1 ug/mL (Not Estab.)
== END ==
LOC: OD 10:18
PROVIDERS: ATTEND Internal Medicine Nephrology
DX: N18.3 Chronic kidney disease, stage 3 (moderate) (principal); D63.1 Anemia in chronic kidney disease
CPT/HCPCS: 36415; 80048; 82040; 82043; 82306; 82570; 83970; 84100; 85025

== ENCOUNTER → 2018-01-08 | Outpatient (CLI) | payer MEDICARE, OTHER ==
[2018-01-08 11:23] LABS: ANION GAP 13 (5-19); BLOOD UREA NITROGEN 53 mg/dL (7-20); CALCIUM 10.1 mg/dL (8.4-10.2); CARBON DIOXIDE 24 mmol/L (22-30); CHLORIDE 106 mmol/L (98-107); GLUCOSE 103 mg/dL (75-110); IRON(TIBC) 38.7 ug/dL (49-181); POTASSIUM 5.3 mmol/L (3.6-5.0); SODIUM 142.7 mmol/L (137-145)
== END ==
LOC: OD 09:53
PROVIDERS: ATTEND Internal Medicine Nephrology
DX: N18.9 Chronic kidney disease, unspecified (principal); E87.5 Hyperkalemia
CPT/HCPCS: 36415; 80048; 82728; 83540; 83550; 83735

== ENCOUNTER → 2018-02-14 | Outpatient (CLI) | payer MEDICARE, OTHER ==
[2018-02-14 09:30] LABS: ANION GAP 11 (5-19); BLOOD UREA NITROGEN 66 mg/dL (7-20); CALCIUM 9.6 mg/dL (8.4-10.2); CARBON DIOXIDE 20 mmol/L (22-30); CHLORIDE 109 mmol/L (98-107); GLUCOSE 92 mg/dL (75-110); POTASSIUM 5.8 mmol/L (3.6-5.0); SODIUM 140.3 mmol/L (137-145)
== END ==
LOC: OD 08:11
PROVIDERS: ATTEND Internal Medicine Cardiovascular Disease
DX: R06.02 Shortness of breath (principal); N18.3 Chronic kidney disease, stage 3 (moderate)
CPT/HCPCS: 36415; 80048; 83880

== ENCOUNTER → 2018-02-17 | Outpatient (CLI) | payer MEDICARE, OTHER | LOC: OD 11:58 | PROVIDERS: ATTEND Internal Medicine Nephrology | DX: E87.5 Hyperkalemia (principal) | CPT/HCPCS: 36415; 84132 ==

== ENCOUNTER → 2018-02-22 | Outpatient (CLI) | payer MEDICARE, OTHER | LOC: OD 08:06 | PROVIDERS: ATTEND Internal Medicine Nephrology | DX: E87.5 Hyperkalemia (principal) | CPT/HCPCS: 36415; 84132 ==

== ENCOUNTER → 2018-02-28 | Outpatient (CLI) | payer MEDICARE, OTHER | LOC: OD 08:33 | PROVIDERS: ATTEND Internal Medicine Nephrology | DX: E87.5 Hyperkalemia (principal) | CPT/HCPCS: 36415; 84132 ==

== ENCOUNTER → 2018-03-07 | Outpatient (CLI) | payer MEDICARE, OTHER ==
[2018-03-07 08:59] LABS: ABSOLUTE BASOPHILS # (AUTO) 0.1 10^3/uL (0.0-0.2); ABSOLUTE EOSINOPHILS # (AUTO) 0.2 10^3/uL (0.0-0.6); ABSOLUTE LYMPHOCYTES (AUTO) 1.2 10^3/uL (0.5-4.7); ABSOLUTE MONOCYTES (AUTO) 0.3 10^3/uL (0.1-1.4); ABSOLUTE NEUT (AUTO) 2.5 10^3/uL (1.7-8.2); BASOPHILS % (AUTO) 1.4 % (0-2); HEMATOCRIT 33.9 % (37.9-51.0); HEMOGLOBIN 11.2 g/dL (13.5-17.0); MEAN CORPUSCULAR HEMOGLOBIN 28.4 pg (27.0-33.4); MEAN CORPUSCULAR HGB CONC 33.1 g/dL (32.0-36.0); MEAN CORPUSCULAR VOLUME 86 fl (80-97); MONOCYTES % (AUTO) 7.2 % (3-13); RED BLOOD COUNT 3.95 10^6/uL (4.35-5.55); SEGMENTED NEUTROPHILS % (AUTO) 59.4 % (42-78); TOTAL CELLS COUNTED % (AUTO) 100 %; WHITE BLOOD COUNT 4.1 10^3/uL (4.0-10.5)
[2018-03-07 09:05] LABS: APPEARANCE,URINE CLEAR; BILIRUBIN,URINE NEGATIVE (NEGATIVE); COLOR,URINE YELLOW; GLUCOSE, URINE NEGATIVE (NEGATIVE); KETONES,URINE NEGATIVE (NEGATIVE); LEUKOCYTE ESTERASE,URINE NEGATIVE (NEGATIVE); NITRITE,URINE NEGATIVE (NEGATIVE); PROTEIN,URINE NEGATIVE (NEGATIVE); URINE SPECIFIC GRAVITY 1.009; UROBILINOGEN,URINE NEGATIVE mg/dL (<2.0)
[2018-03-07 09:17] LABS: ALBUMIN 3.6 g/dL (3.5-5.0); ANION GAP 12 (5-19); BLOOD UREA NITROGEN 39 mg/dL (7-20); CALCIUM 9.9 mg/dL (8.4-10.2); CARBON DIOXIDE 25 mmol/L (22-30); CHLORIDE 105 mmol/L (98-107); GLUCOSE 91 mg/dL (75-110); IRON(TIBC) 62.9 ug/dL (49-181); POTASSIUM 4.9 mmol/L (3.6-5.0); SODIUM 142.1 mmol/L (137-145)
[2018-03-07 09:31] LABS: PLATELET COUNT 96 10^3/uL (150-450)
[2018-03-08 10:36] LABS: CREATININE URINE 39.3 mg/dL (Not Estab.); MICROALBUMIN URINE 37.5 ug/mL (Not Estab.)
== END ==
LOC: OD 08:19
PROVIDERS: ATTEND Internal Medicine Nephrology
DX: N18.3 Chronic kidney disease, stage 3 (moderate) (principal); D50.9 Iron deficiency anemia, unspecified; E21.3 Hyperparathyroidism, unspecified; E83.39 Other disorders of phosphorus metabolism
CPT/HCPCS: 36415; 80048; 81001; 82040; 82043; 82570; 82728; 83540; 83550; 83735; 83970; 85025

== ENCOUNTER → 2018-08-26 | Outpatient (CLI) | payer MEDICARE, OTHER ==
[2018-08-26 09:57] LABS: APPEARANCE,URINE CLEAR; BILIRUBIN,URINE NEGATIVE (NEGATIVE); COLOR,URINE YELLOW; GLUCOSE, URINE NEGATIVE (NEGATIVE); KETONES,URINE NEGATIVE (NEGATIVE); LEUKOCYTE ESTERASE,URINE NEGATIVE (NEGATIVE); NITRITE,URINE NEGATIVE (NEGATIVE); PROTEIN,URINE 30 mg/dL (NEGATIVE); UROBILINOGEN,URINE NEGATIVE mg/dL (<2.0)
[2018-08-26 10:02] LABS: HEMOGLOBIN 12.4 g/dL (13.5-17.0); MEAN CORPUSCULAR HEMOGLOBIN 29.4 pg (27.0-33.4); MEAN CORPUSCULAR HGB CONC 33.5 g/dL (32.0-36.0); MEAN CORPUSCULAR VOLUME 88 fl (80-97); RED BLOOD COUNT 4.21 10^6/uL (4.35-5.55); RED CELL DISTRIBUTION WIDTH 13.5 % (11.5-14.0); WHITE BLOOD COUNT 3.8 10^3/uL (4.0-10.5)
[2018-08-26 10:15] LABS: ALBUMIN 3.6 g/dL (3.5-5.0); ANION GAP 9 (5-19); BLOOD UREA NITROGEN 29 mg/dL (7-20); CALCIUM 9.6 mg/dL (8.4-10.2); CARBON DIOXIDE 27 mmol/L (22-30); CHLORIDE 105 mmol/L (98-107); GLUCOSE 105 mg/dL (75-110); PHOSPHORUS 3.5 mg/dL (2.5-4.5); POTASSIUM 4.7 mmol/L (3.6-5.0); SODIUM 140.6 mmol/L (137-145)
[2018-08-26 10:25] LABS: PLATELET COUNT 86 10^3/uL (150-450)
[2018-08-26 10:31] LABS: ABSOLUTE LYMPHOCYTES# (MANUAL) 1.2 10^3/uL (0.5-4.7); ABSOLUTE MONOCYTES # (MANUAL) 0.4 10^3/uL (0.1-1.4); BAND NEUTROPHILS % (MANUAL) 1 % (3-5); BASOPHILS % (MANUAL) 0 % (0-2); EOSINOPHILS % (MANUAL) 6 % (0-6); LYMPHOCYTES % (MANUAL) 31 % (13-45); MONOCYTES % (MANUAL) 10 % (3-13); SEGMENTED NEUTROPHILS % (MAN) 52 % (42-78); TOTAL CELLS COUNTED 100
[2018-08-26 10:33] LABS: PLATELET COMMENT DECREASED; POLYCHROMASIA SLIGHT; TOXIC GRANULATION 2+; TOXIC VACUOLATION PRESENT
[2018-08-27 13:39] LABS: CREATININE URINE 53.3 mg/dL (Not Estab.); MICROALBUMIN URINE 115.1 ug/mL (Not Estab.)
== END ==
LOC: OD 09:08
PROVIDERS: ATTEND Internal Medicine Nephrology
DX: N18.3 Chronic kidney disease, stage 3 (moderate) (principal); D50.9 Iron deficiency anemia, unspecified; E21.3 Hyperparathyroidism, unspecified; E83.39 Other disorders of phosphorus metabolism
CPT/HCPCS: 36415; 80048; 81001; 82040; 82043; 82306; 82570; 82728; 83540; 83550; 83970; 84100; 85025

== ENCOUNTER → 2018-12-05 | Outpatient (CLI) | payer MEDICARE, OTHER ==
[2018-12-05 09:40] LABS: ANION GAP 10 (5-19); BLOOD UREA NITROGEN 78 mg/dL (7-20); CALCIUM 10.3 mg/dL (8.4-10.2); CARBON DIOXIDE 24 mmol/L (22-30); CHLORIDE 105 mmol/L (98-107); GLUCOSE 100 mg/dL (75-110); POTASSIUM 4.9 mmol/L (3.6-5.0); SODIUM 139.2 mmol/L (137-145)
[2018-12-06 09:37] LABS: CREATININE URINE 14.9 mg/dL (Not Estab.); MICROALBUMIN URINE 3.1 ug/mL (Not Estab.)
== END ==
LOC: OD 08:52
PROVIDERS: ATTEND Internal Medicine Nephrology
DX: I12.9 Hypertensive chronic kidney disease with stage 1 through stage 4 chronic kidney disease, or unspecified chronic kidney disease (principal); N18.3 Chronic kidney disease, stage 3 (moderate); D64.9 Anemia, unspecified; R80.9 Proteinuria, unspecified
CPT/HCPCS: 36415; 80048; 82043; 82570; 83970

== ENCOUNTER → 2018-12-31 | Outpatient (CLI) | payer MEDICARE, OTHER ==
[2018-12-31 11:11] LABS: ANION GAP 10 (5-19); BLOOD UREA NITROGEN 63 mg/dL (7-20); CALCIUM 10.5 mg/dL (8.4-10.2); CARBON DIOXIDE 28 mmol/L (22-30); CHLORIDE 102 mmol/L (98-107); GLUCOSE 91 mg/dL (75-110); POTASSIUM 5.2 mmol/L (3.6-5.0); SODIUM 140.3 mmol/L (137-145)
== END ==
LOC: OD 09:51
PROVIDERS: ATTEND Internal Medicine Nephrology
DX: I12.9 Hypertensive chronic kidney disease with stage 1 through stage 4 chronic kidney disease, or unspecified chronic kidney disease (principal); N18.3 Chronic kidney disease, stage 3 (moderate); E87.5 Hyperkalemia
CPT/HCPCS: 36415; 80048

== ENCOUNTER → 2019-01-02 | Outpatient (CLI) | payer MEDICARE, OTHER ==
--- NOTE | 2019-01-02 11:50 | RADIOLOGY REPORT (SQ) ---
EXAM DESCRIPTION: DUPLEX ART/NELSON FLOW COMPLETE COMPLETED DATE/TIME: 01/02/2019 10:29 am REASON FOR STUDY: CKD III (N18.3), ARF N18.3 CHRONIC KIDNEY DISEASE, STAGE 3 (MODERATE) COMPARISON: PET-CT 10/20/2017 CT chest 09/02/2017 TECHNIQUE: Realtime and static grayscale images acquired. Selected color Doppler, velocities and spe ctral images recorded. LIMITATIONS: Midline bowel gas, unable to visualize proximal renal arteries off the aorta. Unable t o visualize right renal vessels FINDINGS: RIGHT KIDNEY: RENAL ARTERY VELOCITIES: Unable to obtain RENAL VEIN: Unable to visualize VELOCITY RATIO: Not applicable KIDNEY: Atrophic right kidney, not visualized by ultrasound. Small right kidney on PET-CT 10/20/2017 LEFT KIDNEY: RENAL ARTERY VELOCITIES: At the hilum 49 cm/sec. Segmental artery velocity 59 cm/sec. RENAL VEIN: Color doppler flow present, patent. VELOCITY RATIO: Normal. Normal waveforms. KIDNEY: 14 cm in length. No hydronephrosis. No significant pathology. BLADDER: Not well seen OTHER: No other significant finding. IMPRESSION: NO DOPPLER EVIDENCE OF HEMODYNAMICALLY SIGNIFICANT LEFT RENAL ARTERY STENOSIS. RIGHT KIDNEY, URINARY BLADDER NOT VISUALIZED COMMENT: NORMAL RENAL ARTERY/AORTA VELOCITY RATIO IS LESS THAN OR EQUAL TO 3.5. TECHNICAL DOCUMENTATION: JOB ID: [id number] [employer]- All Rights Reserved Reading location - IP/workstation name: [email or web address]
== END ==
LOC: RAD 09:38
PROVIDERS: ATTEND Internal Medicine Nephrology
DX: I12.9 Hypertensive chronic kidney disease with stage 1 through stage 4 chronic kidney disease, or unspecified chronic kidney disease (principal); N18.3 Chronic kidney disease, stage 3 (moderate)
CPT/HCPCS: 93975

== ENCOUNTER → 2019-04-08 | Outpatient (CLI) | payer MEDICARE, OTHER ==
[2019-04-08 09:56] LABS: ALBUMIN 3.5 g/dL (3.5-5.0); PHOSPHORUS 5.4 mg/dL (2.5-4.5)
[2019-04-08 10:11] LABS: APPEARANCE,URINE CLEAR; BILIRUBIN,URINE NEGATIVE (NEGATIVE); COLOR,URINE YELLOW; GLUCOSE, URINE NEGATIVE (NEGATIVE); KETONES,URINE NEGATIVE (NEGATIVE); LEUKOCYTE ESTERASE,URINE NEGATIVE (NEGATIVE); NITRITE,URINE NEGATIVE (NEGATIVE); PROTEIN,URINE NEGATIVE (NEGATIVE); UROBILINOGEN,URINE NEGATIVE mg/dL (<2.0)
[2019-04-08 15:06] LABS: ANION GAP 15 (5-19); BLOOD UREA NITROGEN 105 mg/dL (7-20); CALCIUM 9.9 mg/dL (8.4-10.2); CARBON DIOXIDE 19 mmol/L (22-30); CHLORIDE 104 mmol/L (98-107); GLUCOSE 93 mg/dL (75-110); POTASSIUM 5.1 mmol/L (3.6-5.0)
[2019-04-08 15:36] LABS: ABSOLUTE EOSINOPHILS # (AUTO) 0.1 10^3/uL (0.0-0.6); ABSOLUTE LYMPHOCYTES (AUTO) 0.9 10^3/uL (0.5-4.7); ABSOLUTE MONOCYTES (AUTO) 0.3 10^3/uL (0.1-1.4); ABSOLUTE NEUT (AUTO) 3.1 10^3/uL (1.7-8.2); BASOPHILS % (AUTO) 0.9 % (0-2); EOSINOPHILS % (AUTO) 2.3 % (0-6); HEMATOCRIT 33.8 % (37.9-51.0); HEMOGLOBIN 11.1 g/dL (13.5-17.0); LYMPHOCYTES % (AUTO) 20.7 % (13-45); MEAN CORPUSCULAR HEMOGLOBIN 29.4 pg (27.0-33.4); MEAN CORPUSCULAR HGB CONC 32.8 g/dL (32.0-36.0); MEAN CORPUSCULAR VOLUME 90 fl (80-97); MONOCYTES % (AUTO) 7.1 % (3-13); PLATELET COUNT 110 10^3/uL (150-450); RED BLOOD COUNT 3.77 10^6/uL (4.35-5.55); RED CELL DISTRIBUTION WIDTH 13.2 % (11.5-14.0); TOTAL CELLS COUNTED % (AUTO) 100 %; WHITE BLOOD COUNT 4.5 10^3/uL (4.0-10.5)
[2019-04-09 10:36] LABS: CREATININE URINE 54.6 mg/dL (Not Estab.); MICROALBUMIN URINE 9.7 ug/mL (Not Estab.)
== END ==
LOC: OD 08:59
PROVIDERS: ATTEND Internal Medicine Nephrology
DX: I12.9 Hypertensive chronic kidney disease with stage 1 through stage 4 chronic kidney disease, or unspecified chronic kidney disease (principal); N18.3 Chronic kidney disease, stage 3 (moderate); N25.9 Disorder resulting from impaired renal tubular function, unspecified; D63.0 Anemia in neoplastic disease; E55.9 Vitamin D deficiency, unspecified
CPT/HCPCS: 36415; 80069; 81001; 82043; 82306; 82570; 83970; 85025

== ENCOUNTER → 2019-04-21 | Outpatient (CLI) | payer MEDICARE, OTHER ==
--- NOTE | 2019-04-21 12:48 | RADIOLOGY REPORT (SQ) ---
EXAM DESCRIPTION: U/S RETROPERITON (RENAL/AORTA) COMPLETED DATE/TIME: 04/21/2019 11:17 am REASON FOR STUDY: N18.4 CHRONIC KIDNEY DISEASE, STAGE 4 (SEVERE) N18.4 CHRONIC KIDNEY DISEASE, STAG E 4 (SEVERE) COMPARISON: 12/17/2017 TECHNIQUE: Dynamic and static grayscale images acquired of the kidneys and bladder and recorded on P ACS. Additional selected color Doppler and spectral images recorded. LIMITATIONS: None. FINDINGS: RIGHT KIDNEY: The right kidney is small in size measured 6.6 cm. This is grossly stable from prior study. Echogenicity is increased. Cortex measures 5.5 mm. No solid or suspicious mass es. No hydronephrosis. No calcifications. LEFT KIDNEY: The left kidney measures 12.1 cm in length. Normal echogenicity. No solid or suspic ious masses. No hydronephrosis. No calcifications. BLADDER: No masses. OTHER FINDINGS: No other significant finding. IMPRESSION: Small echogenic right kidney. No significant change from prior exam. TECHNICAL DOCUMENTATION: JOB ID: [id number] [employer]- All Rights Reserved Reading location - IP/workstation name: [email or web address]
== END ==
LOC: RAD 09:55
PROVIDERS: ATTEND Internal Medicine Nephrology
DX: N18.4 Chronic kidney disease, stage 4 (severe) (principal); N27.0 Small kidney, unilateral
CPT/HCPCS: 76770

== ENCOUNTER → 2019-05-05 | Outpatient (CLI) | payer MEDICARE, OTHER ==
[2019-05-05 11:49] LABS: ANION GAP 7 (5-19); BLOOD UREA NITROGEN 19 mg/dL (7-20); CALCIUM 9.8 mg/dL (8.4-10.2); CARBON DIOXIDE 31 mmol/L (22-30); CHLORIDE 102 mmol/L (98-107); GLUCOSE 90 mg/dL (75-110); PHOSPHORUS 2.9 mg/dL (2.5-4.5)
== END ==
LOC: OD 10:41
PROVIDERS: ATTEND Internal Medicine Nephrology
DX: N17.9 Acute kidney failure, unspecified (principal); I12.9 Hypertensive chronic kidney disease with stage 1 through stage 4 chronic kidney disease, or unspecified chronic kidney disease; N18.4 Chronic kidney disease, stage 4 (severe); D63.1 Anemia in chronic kidney disease; N25.81 Secondary hyperparathyroidism of renal origin
CPT/HCPCS: 36415; 80048; 84100

== ENCOUNTER 2019-10-03 10:44 | Emergency (ER) | payer MEDICARE, OTHER ==
--- NOTE | 2019-10-03 10:54 | ER Document Report ---
ED Medical Screen (RME) - General Chief Complaint: Abnormal Lab Results Stated Complaint: ABNORMAL LABS Time Seen by Provider: 10/03/19 10:48 Primary Care Provider: ROCHELLE YEAGER MD [Primary Care Provider] - Follow up as needed Mode of Arrival: Ambulatory Information source: Patient Notes: 79-year-old male presented to ED for abnormal labs states his WBCs were very low and was sent to the emergency room. Family states that the MD called last night and this morning. He states the doctor told him that he did not need to come in until this morning. Patient does have a history of COPD with a whole lot of other history. His O2 sat is 91% on 3 L O2 that is his normal home O2. He states he knows he has pneumonia he has been told that he possibly has blood clots in his lungs and that he needed to see a blood doctor. He has pulmonary edema. He has a pacemaker with heart conditions he has had a heart attack with open heart surgery. He is scheduled for battery change on his pacemaker Saturday and he has 1 kidney that is functioning at about 40%. I have greeted and performed a rapid initial assessment of this patient. A comprehensive ED assessment and evaluation of the patient, analysis of test results and completion of medical decision making process will be conducted by an additional ED providers. TRAVEL OUTSIDE OF THE [place] IN LAST 30 DAYS: No - Related Data Allergies/Adverse Reactions: No Known Allergies Allergy (Verified 10/03/19 10:47) Past Medical History - Past Medical History Cardiac Medical History: Reports: Hx Coronary Artery Disease, Hx Heart Attack, Hx Hypertension Pulmonary Medical History: Reports: Hx COPD, Hx Respiratory Failure Renal/ Medical History: Denies: Hx Peritoneal Dialysis Past Surgical History: Reports: Hx Cardiac Surgery - endocarectomy, atrialvalve replaced, stent, Hx Coronary Stent, Hx Pacemaker Doctor's Discharge - Discharge Referrals: ROCHELLE YEAGER MD [Primary Care Provider] - Follow up as needed
--- NOTE | 2019-10-03 11:22 | RADIOLOGY REPORT (SQ) ---
EXAM DESCRIPTION: CHEST 2 VIEWS COMPLETED DATE/TIME: 10/03/2019 11:11 am REASON FOR STUDY: Cough short of breath COMPARISON: 2018 TECHNIQUE: Frontal and lateral radiographic views of the chest acquired. NUMBER OF VIEWS: Two view. LIMITATIONS: None. FINDINGS: LUNGS AND PLEURA: Chronic findings. Hyperinflated lung dobbs with patchy left basilar ai rspace disease. Probably scar although recurrent pneumonia could have a similar appearance. Mild ch ronic or recurrent vascular congestion as well. MEDIASTINUM AND HILAR STRUCTURES: Stable contours. HEART AND VASCULAR STRUCTURES: Stable. BONES: Osteopenia. HARDWARE: Left pacer, leads grossly intact. OTHER: No other significant finding. IMPRESSION: Chronic or recurrent lung changes as above. Includes left basilar opacity and mild vasc ular congestion. Similar appearance compared to 2018 study. TECHNICAL DOCUMENTATION: JOB ID: [id number] [employer]- All Rights Reserved Reading location - IP/workstation name: [email or web address]
[2019-10-03 11:43] LABS: ABSOLUTE BASOPHILS # (AUTO) 0.1 10^3/uL (0.0-0.2); ABSOLUTE EOSINOPHILS # (AUTO) 0.1 10^3/uL (0.0-0.6); ABSOLUTE LYMPHOCYTES (AUTO) 1.4 10^3/uL (0.5-4.7); ABSOLUTE MONOCYTES (AUTO) 0.3 10^3/uL (0.1-1.4); ABSOLUTE NEUT (AUTO) 0.8 10^3/uL (1.7-8.2); BASOPHILS % (AUTO) 2.1 % (0-2); EOSINOPHILS % (AUTO) 3.7 % (0-6); HEMATOCRIT 36.2 % (37.9-51.0); HEMOGLOBIN 11.9 g/dL (13.5-17.0); LYMPHOCYTES % (AUTO) 50.9 % (13-45); MEAN CORPUSCULAR HEMOGLOBIN 29.1 pg (27.0-33.4); MEAN CORPUSCULAR HGB CONC 32.9 g/dL (32.0-36.0); MEAN CORPUSCULAR VOLUME 88 fl (80-97); MONOCYTES % (AUTO) 12.7 % (3-13); PLATELET COUNT 102 10^3/uL (150-450); RED BLOOD COUNT 4.09 10^6/uL (4.35-5.55); RED CELL DISTRIBUTION WIDTH 15.9 % (11.5-14.0); SEGMENTED NEUTROPHILS % (AUTO) 30.6 % (42-78); TOTAL CELLS COUNTED % (AUTO) 100 %; WHITE BLOOD COUNT 2.8 10^3/uL (4.0-10.5)
[2019-10-03 11:44] LABS: APPEARANCE,URINE CLEAR; BILIRUBIN,URINE NEGATIVE (NEGATIVE); COLOR,URINE YELLOW; GLUCOSE, URINE NEGATIVE (NEGATIVE); KETONES,URINE NEGATIVE (NEGATIVE); PROTEIN,URINE NEGATIVE (NEGATIVE); URINE SPECIFIC GRAVITY 1.006; UROBILINOGEN,URINE NEGATIVE mg/dL (<2.0)
[2019-10-03 11:53] LABS: ALBUMIN 3.5 g/dL (3.5-5.0); ALKALINE PHOSPHATASE 114 U/L (38-126); ANION GAP 9 (5-19); ASPARTATE AMINO TRANSFERASE 20 U/L (17-59); BILIRUBIN,DIRECT 0.3 mg/dL (0.0-0.4); BILIRUBIN,TOTAL 0.8 mg/dL (0.2-1.3); BLOOD UREA NITROGEN 31 mg/dL (7-20); CALCIUM 10.2 mg/dL (8.4-10.2); CARBON DIOXIDE 33 mmol/L (22-30); CHLORIDE 96 mmol/L (98-107); GLUCOSE 110 mg/dL (75-110); POTASSIUM 3.2 mmol/L (3.6-5.0); TOTAL PROTEIN 7.3 g/dL (6.3-8.2)
--- NOTE | 2019-10-03 13:16 | ER Document Report ---
ED General - General Chief Complaint: Abnormal Lab Results Stated Complaint: ABNORMAL LABS Time Seen by Provider: 10/03/19 10:48 Primary Care Provider: ROCHELLE YEAGER MD [ACTIVE STAFF] - Follow up as needed Mode of Arrival: Ambulatory Notes: 79-year-old man who is sent to the emergency department because his primary physician had drawn blood on Saturday noting that his WBC count was 2.4 and his neutrophil count was 400. He was told to come to the emergency department for repeat laboratory testing. Patient states that he is not having any symptoms or difficulties at this time. He was treated for pneumonia and sepsis at a hospital in [place] approximately 3 weeks ago. TRAVEL OUTSIDE OF THE [place] IN LAST 30 DAYS: No - Related Data Allergies/Adverse Reactions: No Known Allergies Allergy (Verified 10/03/19 10:47) Past Medical History - General Information source: Patient - Social History Smoking Status: Former Smoker Chew tobacco use (# tins/day): No Frequency of alcohol use: None Drug Abuse: None Family History: CAD - Heart attack in mother, Malignancy - Liver cancer in father Patient has suicidal ideation: No Patient has homicidal ideation: No - Past Medical History Cardiac Medical History: Reports: Hx Coronary Artery Disease, Hx Heart Attack, Hx Hypertension Pulmonary Medical History: Reports: Hx COPD, Hx Respiratory Failure Renal/ Medical History: Denies: Hx Peritoneal Dialysis Past Surgical History: Reports: Hx Cardiac Surgery - endocarectomy, atrialvalve replaced, stent, Hx Coronary Stent, Hx Pacemaker Review of Systems - Review of Systems Notes: Constitutional: + Fatigue, no fever. HENT: Negative for sore throat. Eyes: Negative for visual changes. Cardiovascular: Negative for chest pain. Respiratory: + Chronic shortness of breath. Gastrointestinal: Negative for abdominal pain, vomiting or diarrhea. Genitourinary: Negative for dysuria. Musculoskeletal: Negative for back pain. Skin: Negative for rash. Neurological: Negative for headaches, weakness or numbness. 10 point ROS negative except as marked above and in HPI. Physical Exam - Vital signs Vitals: Temp Resp Pulse Ox 97.1 F 16 91 L 10/03/19 10:48 10/03/19 10:48 10/03/19 10:48 - Notes Notes: PHYSICAL EXAMINATION: Physical Exam: General: Chronically ill 79-year-old man with nasal cannula in place in no acute distress HEENT: NC/AT, pupils equal round and reactive to light, MM moist,nares clear, pharynx clear Neck: supple, no adenopathy, no masses. Lungs: clear, no wheezing, no rales no rhonchi CVS: Regular rate and rhythm no murmur gallop or rub Abdomen: Soft, active, nontender, no masses, no hepatosplenomegaly Ext: Trace edema without clubbing or cyanosis. Neuro: Alert and responsive, moving all 4 extremities on command, cranial nerves intact. Skin: Intact no open lesions, no rash Course - Re-evaluation Re-evalutation: 10/03/19 15:50 Patient had a number of tests performed as he was seen through the triage, EKG, chest x-ray multiple lab testing were performed prior to his being evaluated for the leukopenia and neutropenia for which he was sent to the emergency departmen t. Patient has a chronic cardiomyopathy and is on home O2. The repeat labs in the emergency department do show a increased WBC count of 2.8 and an increased total neutrophil count of 2000. After discussion with the patient and his family, he is being discharged home to follow-up with his primary care physician on Saturday. The results of the CBC are dictated in the discharge instructions for least 5 days.. The his chronic medical problems which were also evaluated in the emergency department have resulted with a number of labs which might be followed by the outpatient physician. - Vital Signs Vital signs: Temp Pulse Resp BP Pulse Ox 98.4 F 15 173/60 H 96 10/03/19 13:49 10/03/19 13:49 10/03/19 13:49 10/03/19 13:49 - Laboratory Result Diagrams: 10/03/19 11:18 10/03/19 11:18 Laboratory results interpreted by me: 10/03/19 10/03/19 10/03/19 11:18 11:18 11:18 WBC 2.8 L RBC 4.09 L Hgb 11.9 L Hct 36.2 L RDW 15.9 H Plt Count 102 L Lymph % (Auto) 50.9 H Baso % (Auto) 2.1 H Absolute Neuts (auto) 0.8 L Seg Neutrophils % 30.6 L D-Dimer 1.21 H Potassium 3.2 L Chloride 96 L Carbon Dioxide 33 H BUN 31 H Creatinine 2.14 H Est GFR ( Amer) 36 L Est GFR (MDRD) Non-Af 30 L Discharge - Discharge Clinical Impression: On home O2, CKD (chronic kidney disease) stage 4, GFR 15-29 ml/min Leukopenia Qualifiers: Leukopenia type: unspecified Qualified Code(s): D72.819 - Decreased white blood cell count, unspecified Neutropenia Qualifiers: Neutropenia type: unspecified Qualified Code(s): D70.9 - Neutropenia, unspecified Chronic respiratory failure Qualifiers: Respiratory failure complication: hypoxia Qualified Code(s): J96.11 - Chronic respiratory failure with hypoxia Condition: Good Disposition: HOME, SELF-CARE Additional Instructions: You were diagnosed with a low WBC count 2.8 and a low neutrophil count 2.1 in the emergency department today. While the numbers are low they are not critically low. You should follow-up with your physician on Saturday as he can compare the values from the office to the values today and decide when to repeat the test. If you develop other symptoms fever, shortness of breath, or other concerns please return to the emergency department. Referrals: ROCHELLE YEAGER MD [ACTIVE STAFF] - Follow up as needed
--- NOTE | 2019-10-03 13:36 | ER Document Report ---
ED General - General Chief Complaint: Abnormal Lab Results Stated Complaint: ABNORMAL LABS Time Seen by Provider: 10/03/19 10:48 Primary Care Provider: ROCHELLE YEAGER MD [ACTIVE STAFF] - Follow up as needed Mode of Arrival: Ambulatory Notes: 79-year-old man presents to the emergency department with a history of low WBC and low neutrophil count. Patient was sent to the emergency department for repeat labs at this time. He has been treated a intensive care unit and [place] for approximately 2-1/2 weeks for a pneumonia and possible sepsis. He was discharged home without antibiotic and he has been doing well with a better appetite and better strength. He is on home O2 at 3 L. Patient has chronic respiratory failure, chronic renal failure, and pacemaker with CHF. He is on Lasix daily and Eliquis. TRAVEL OUTSIDE OF THE [place] IN LAST 30 DAYS: No - Related Data Allergies/Adverse Reactions: No Known Allergies Allergy (Verified 10/03/19 10:47) Past Medical History - General Information source: Patient - .. - Social History Smoking Status: Former Smoker Chew tobacco use (# tins/day): No Frequency of alcohol use: None Drug Abuse: None Family History: CAD - Heart attack in mother, Malignancy - Liver cancer in father Patient has suicidal ideation: No Patient has homicidal ideation: No - Past Medical History Cardiac Medical History: Reports: Hx Coronary Artery Disease, Hx Heart Attack, Hx Hypertension Pulmonary Medical History: Reports: Hx COPD, Hx Respiratory Failure Renal/ Medical History: Denies: Hx Peritoneal Dialysis Past Surgical History: Reports: Hx Cardiac Surgery - endocarectomy, atrialvalve replaced, stent, Hx Coronary Stent, Hx Pacemaker Review of Systems - Review of Systems Notes: Constitutional: Negative for fever. + Good appetite HENT: Negative for sore throat. Eyes: Negative for visual changes. Cardiovascular: Negative for chest pain. Respiratory: Negative for shortness of breath. Gastrointestinal: Negative for abdominal pain, vomiting or diarrhea. Genitourinary: Negative for dysuria. Musculoskeletal: Negative for back pain. Skin: Negative for rash. Neurological: Negative for headaches, weakness or numbness. 10 point ROS negative except as marked above and in HPI. Physical Exam - Vital signs Vitals: Temp Resp Pulse Ox 97.1 F 16 91 L 10/03/19 10:48 10/03/19 10:48 10/03/19 10:48 - Notes Notes: PHYSICAL EXAMINATION: Physical Exam: General: Well-nourished well-developed 79-year-old man in no acute distress HEENT: NC/AT, pupils equal round and reactive to light, MM moist,nares clear, oropharynx clear Neck: supple, no adenopathy, no masses. Lungs: clear, no wheezing, no rales no rhonchi CVS: Regular rate and rhythm no murmur gallop or rub Abdomen: Soft active nontender, no masses, no hepatosplenomegaly Ext: 1+ edema, clubbing, or cyanosis. Neuro: Alert and responsive, moving all 4 extremities on command, cranial nerves intact. Skin: Intact no open lesions, no rash PSYCH: Normal mood, normal affect. Course - Vital Signs Vital signs: Temp Pulse Resp BP Pulse Ox 97.1 F 17 96 10/03/19 10:48 10/03/19 13:00 10/03/19 13:00 - Laboratory Result Diagrams: 10/03/19 11:18 10/03/19 11:18 Laboratory results interpreted by me: 10/03/19 10/03/19 10/03/19 11:18 11:18 11:18 WBC 2.8 L RBC 4.09 L Hgb 11.9 L Hct 36.2 L RDW 15.9 H Plt Count 102 L Lymph % (Auto) 50.9 H Baso % (Auto) 2.1 H Absolute Neuts (auto) 0.8 L Seg Neutrophils % 30.6 L D-Dimer 1.21 H Potassium 3.2 L Chloride 96 L Carbon Dioxide 33 H BUN 31 H Creatinine 2.14 H Est GFR ( Amer) 36 L Est GFR (MDRD) Non-Af 30 L 10/03/19 13:35 I have reviewed laboratory data and used this information for the treatment decisions regarding the patient. - Diagnostic Test Radiology reviewed: Image reviewed, Reports reviewed - Chest x-ray: Chronic changes COPD and interstitial scarring with mild pulmonary edema right basilar scarring? Infection. - EKG Interpretation by Me Rhythm: Other - Ventricular paced rhythm rate of 65 Discharge - Discharge Clinical Impression: On home O2, CKD (chronic kidney disease) stage 4, GFR 15-29 ml/min Leukopenia Qualifiers: Leukopenia type: unspecified Qualified Code(s): D72.819 - Decreased white blood cell count, unspecified Neutropenia Qualifiers: Neutropenia type: unspecified Qualified Code(s): D70.9 - Neutropenia, unspecified Condition: Good Disposition: HOME, SELF-CARE Additional Instructions: You were diagnosed with a low WBC count 2.8 and a low neutrophil count 2.1 in the emergency department today. While the numbers are low they are not criti nallely low. You should follow-up with your physician on Saturday as he can compare the values from the office to the values today and decide when to repeat the test. If you develop other symptoms fever, shortness of breath, or other concerns please return to the emergency department. Referrals: ROCHELLE YEAGER MD [ACTIVE STAFF] - Follow up as needed
[2019-10-03 13:53] VITALS: BP 173/60
--- NOTE | 2019-10-03 14:31 | EKG REPORT ---
SEVERITY:- ABNORMAL ECG - VENTRICULAR-PACED RHYTHM : Confirmed by: Denny Ragsdale MD 03-Oct-2019 14:30:00
== END 2019-10-03 14:00 | disposition home or self-care (01) ==
LOC: ER 10:44
DX: D70.9 Neutropenia, unspecified (principal); J96.10 Chronic respiratory failure, unspecified whether with hypoxia or hypercapnia; I13.0 Hypertensive heart and chronic kidney disease with heart failure and stage 1 through stage 4 chronic kidney disease, or unspecified chronic kidney disease; I50.9 Heart failure, unspecified; N18.4 Chronic kidney disease, stage 4 (severe); I25.10 Atherosclerotic heart disease of native coronary artery without angina pectoris; J44.9 Chronic obstructive pulmonary disease, unspecified; Z99.81 Dependence on supplemental oxygen; Z79.899 Other long term (current) drug therapy; Z79.01 Long term (current) use of anticoagulants; Z87.891 Personal history of nicotine dependence; Z87.01 Personal history of pneumonia (recurrent); Z95.5 Presence of coronary angioplasty implant and graft; Z95.2 Presence of prosthetic heart valve
CPT/HCPCS: 36415; 71046; 80053; 81001; 83690; 84484; 85025; 85379; 93005; 93010; 99284

== ENCOUNTER → 2019-10-16 | Outpatient (CLI) | payer MEDICARE, OTHER ==
[2019-10-16 17:42] LABS: ABSOLUTE MONOCYTES (AUTO) 0.3 10^3/uL (0.1-1.4); ABSOLUTE NEUT (AUTO) 3.4 10^3/uL (1.7-8.2); BASOPHILS % (AUTO) 0.6 % (0-2); EOSINOPHILS % (AUTO) 0.1 % (0-6); HEMATOCRIT 28.7 % (37.9-51.0); HEMOGLOBIN 9.5 g/dL (13.5-17.0); LYMPHOCYTES % (AUTO) 20.2 % (13-45); MEAN CORPUSCULAR HEMOGLOBIN 28.8 pg (27.0-33.4); MEAN CORPUSCULAR HGB CONC 33.3 g/dL (32.0-36.0); MEAN CORPUSCULAR VOLUME 87 fl (80-97); MONOCYTES % (AUTO) 6.3 % (3-13); RED BLOOD COUNT 3.31 10^6/uL (4.35-5.55); RED CELL DISTRIBUTION WIDTH 15.3 % (11.5-14.0); SEGMENTED NEUTROPHILS % (AUTO) 72.8 % (42-78); TOTAL CELLS COUNTED % (AUTO) 100 %; WHITE BLOOD COUNT 4.7 10^3/uL (4.0-10.5)
[2019-10-16 17:54] LABS: ANION GAP 10 (5-19); BLOOD UREA NITROGEN 49 mg/dL (7-20); CALCIUM 9.8 mg/dL (8.4-10.2); CARBON DIOXIDE 32 mmol/L (22-30); CHLORIDE 95 mmol/L (98-107); GLUCOSE 109 mg/dL (75-110); POTASSIUM 3.3 mmol/L (3.6-5.0)
[2019-10-16 18:07] LABS: PLATELET COUNT 74 10^3/uL (150-450)
--- NOTE | 2019-10-16 19:14 | RADIOLOGY REPORT (SQ) ---
EXAM DESCRIPTION: CHEST PA/LATERAL COMPLETED DATE/TIME: 10/16/2019 5:10 pm REASON FOR STUDY: J40 - BRONCHITIS COMPARISON: 10/03/2019 EXAM PARAMETERS: NUMBER OF VIEWS: two views TECHNIQUE: Digital Frontal and Lateral radiographic views of the chest acquired. RADIATION DOSE: NA LIMITATIONS: none FINDINGS: LUNGS AND PLEURA: There is a limited right pleural effusion that appears to be partially l oculated. No acute pulmonary infiltrate is appreciated at this time. MEDIASTINUM AND HILAR STRUCTURES: No masses or contour abnormalities. HEART AND VASCULAR STRUCTURES: Heart normal size. No evidence for failure. BONES: No acute findings. HARDWARE: Heart valve. Sternotomy wires. Pacemaker. OTHER: No other significant finding. IMPRESSION: Limited right pleural effusion. TECHNICAL DOCUMENTATION: JOB ID: [id number] [employer]- All Rights Reserved Reading location - IP/workstation name: [email or web address]
== END ==
LOC: OD 16:37
PROVIDERS: ATTEND Family Medicine
DX: J40 Bronchitis, not specified as acute or chronic (principal); R06.02 Shortness of breath; D70.9 Neutropenia, unspecified
CPT/HCPCS: 36415; 71046; 80048; 83880; 85025; 86140